=== PATIENT | male | born 1940 | race Caucasian/White ===

== ENCOUNTER 2018-09-20 05:21 | Inpatient (IN) | payer MEDICARE | END 2018-09-24 08:32 | disposition still patient (30) | LOC: ER 05:21 → TELE 10:22 → ICU WEST 21:38 | PROC: 4A023N8 Measurement of Cardiac Sampling and Pressure, Bilateral, Percutaneous Approach (ICD-10-PCS; principal; ~2018-09-20) | PROC: B2111ZZ Fluoroscopy of Multiple Coronary Arteries using Low Osmolar Contrast (ICD-10-PCS; ~2018-09-20) | PROC: B2161ZZ Fluoroscopy of Right and Left Heart using Low Osmolar Contrast (ICD-10-PCS; ~2018-09-20) | PROC: 5A02210 Assistance with Cardiac Output using Balloon Pump, Continuous (ICD-10-PCS; ~2018-09-20) | PROC: B2151ZZ Fluoroscopy of Left Heart using Low Osmolar Contrast (ICD-10-PCS; ~2018-09-20) | PROC: 4A023N7 Measurement of Cardiac Sampling and Pressure, Left Heart, Percutaneous Approach (ICD-10-PCS; ~2018-09-20) | PROC: 4A0 Measurement and Monitoring, Physiological Systems, Measurement (ICD-10-PCS; ~2018-09-20) | PROC: 02703ZZ Dilation of Coronary Artery, One Artery, Percutaneous Approach (ICD-10-PCS; ~2018-09-20) | DX: A41.9 Sepsis, unspecified organism (principal); I21.4 Non-ST elevation (NSTEMI) myocardial infarction; I50.43 Acute on chronic combined systolic (congestive) and diastolic (congestive) heart failure; I25.110 Atherosclerotic heart disease of native coronary artery with unstable angina pectoris; E11.42 Type 2 diabetes mellitus with diabetic polyneuropathy; I35.0 Nonrheumatic aortic (valve) stenosis; F12.10 Cannabis abuse, uncomplicated; I12.9 Hypertensive chronic kidney disease with stage 1 through stage 4 chronic kidney disease, or unspecified chronic kidney disease; E11.22 Type 2 diabetes mellitus with diabetic chronic kidney disease; N18.3 Chronic kidney disease, stage 3 (moderate); J44.9 Chronic obstructive pulmonary disease, unspecified; N36.5 Urethral false passage; N40.0 Benign prostatic hyperplasia without lower urinary tract symptoms ==

== ENCOUNTER 2019-02-28 17:26 | Inpatient (IN) | payer MEDICARE | END 2019-03-04 16:43 | disposition home or self-care (01) | LOC: ER 17:26 → TELE 17:27 → TELE-WESTW 03-01 08:59 | PROC: BF101ZZ Fluoroscopy of Bile Ducts using Low Osmolar Contrast (ICD-10-PCS; principal; 2019-03-03 16:20) | PROC: 0FC98ZZ Extirpation of Matter from Common Bile Duct, Via Natural or Artificial Opening Endoscopic (ICD-10-PCS; 2019-03-03 16:20) | DX: A41.9 Sepsis, unspecified organism (principal); I21.A1 Myocardial infarction type 2; K57.92 Diverticulitis of intestine, part unspecified, without perforation or abscess without bleeding; I42.0 Dilated cardiomyopathy; K81.0 Acute cholecystitis; I12.9 Hypertensive chronic kidney disease with stage 1 through stage 4 chronic kidney disease, or unspecified chronic kidney disease; E11.22 Type 2 diabetes mellitus with diabetic chronic kidney disease; E11.65 Type 2 diabetes mellitus with hyperglycemia; E78.5 Hyperlipidemia, unspecified; F12.90 Cannabis use, unspecified, uncomplicated; K72.90 Hepatic failure, unspecified without coma; N18.3 Chronic kidney disease, stage 3 (moderate); Z95.2 Presence of prosthetic heart valve; I35.0 Nonrheumatic aortic (valve) stenosis; I34.2 Nonrheumatic mitral (valve) stenosis; N30.90 Cystitis, unspecified without hematuria; K83.8 Other specified diseases of biliary tract; I25.10 Atherosclerotic heart disease of native coronary artery without angina pectoris; D64.9 Anemia, unspecified; K21.9 Gastro-esophageal reflux disease without esophagitis ==

== ENCOUNTER → 2019-04-04 | Outpatient (CLI) | payer MEDICARE, OTHER ==
[~2019-04-04] MED LIST: ACET30TA15 PO; ASPI81CH43 PO; GABA800T97 PO; GLIP10TA9 PO; PANT40T PO; pravastatin PO
== END | disposition home or self-care (01) ==
LOC: Rad HDHVI 10:52
PROVIDERS: ATTEND Internal Medicine Cardiovascular Disease
DX: I65.23 Occlusion and stenosis of bilateral carotid arteries (principal); M50.30 Other cervical disc degeneration, unspecified cervical region; M48.02 Spinal stenosis, cervical region
CPT/HCPCS: 72125; 93880

== ENCOUNTER 2020-03-30 13:22 | Inpatient (IN) | payer MEDICARE, OTHER ==
[~2020-03-30] VITALS: Ht 167.6 cm; Wt 57.9 kg
[2020-03-30] MEDS ORDERED: LORazepam 2MG/ML-1ML VIAL IV ONE (14:15)
[2020-03-30] MEDS ORDERED: SODIUM CHLORIDE 0.9% 1,000 ML IV ONE (14:15)
[2020-03-30 14:25] LABS: Basophils # (auto) 0 10 ^3/uL (0-0.2); Basophils % (auto) 0.5 % (0.0-2.0); Eosinophils # (auto) 0 10 ^3/uL (0-0.8); Eosinophils % (auto) 0.4 % (0.0-7.0); Hematocrit 40.7 % (41.0-53.0); Hemoglobin 13.2 g/dL (13.5-17.5); Lymphocytes # (auto) 1.2 10 ^3/uL (0.4-5.4); Lymphocytes % (auto) 12.5 % (10.0-50.0); Mean Corpuscular Hemoglobin 31.3 pg (28.0-32.0); Mean Corpuscular Hgb Conc. 32.4 g/dL (32.0-36.0); Mean Corpuscular Volume 96.4 fL (80.0-100.0); Monocytes # (auto) 0.4 10 ^3/uL (0-1.3); Monocytes % (auto) 3.8 % (0.0-12.0); Neutrophils # (auto) 8.2 10 ^3/uL (1.6-8.6); Neutrophils % (auto) 82.8 % (37.0-80.0); Platelet Count (auto) 199 10^3/uL (140-450); Red Blood Cells 4.22 10^6/uL (4.5-5.90); Red Cell Distribution Width 13.9 % (11.8-14.3); White Blood Cell 9.9 10^3/uL (4.4-10.8)
[2020-03-30 14:35] LABS: Albumin 4.2 g/dL (3.4-5.0); Calcium 9.6 mg/dL (8.5-10.1)
[2020-03-30 14:47] LABS: BUN/Creatinine Ratio 17.1; Bilirubin, Total 0.6 mg/dL (0.2-1.0); Total Protein 7.8 g/dL (6.4-8.2)
[2020-03-30] MEDS ORDERED: NITROGLYCERIN 0.4 MG SL TAB SL PRN ×2 (18:45→19:00)
[2020-03-30] MEDS ORDERED: LABETALOL HCL 5 MG/ML 4ML SYRINGE IV ONE (18:45)
[2020-03-30] MEDS ORDERED: MORPHINE SULF 30 mg ER tab PO ONE (18:45)
[2020-03-30] MEDS ORDERED: LACTATED RINGER'S 1,000 ML IV ONE (18:45)
[2020-03-30] MEDS ORDERED: MORPHINE SULF INJ 2 MG/ML SYRINGE 1ML IV PRN ×2 (18:45→19:00)
[2020-03-30] MEDS ORDERED: ONDANSETRON HCL 4 MG/2 ML VIAL IV PRN (19:00)
[2020-03-30] MEDS ORDERED: DEXTROSE (50%) 50ML SYRG IV PRN (19:00)
[2020-03-30] MEDS: SODIUM CHLORIDE 0.9% 1,000 ML IV SCH (19:00)
[2020-03-30] MEDS ORDERED: LORazepam 0.5 MG TAB PO PRN (19:00)
[2020-03-30] MEDS ORDERED: DOCUSATE SOD 100 MG CAP PO PRN (19:00)
[2020-03-30] MEDS ORDERED: ALUM & MAG HYDROX-SIMETH LIQ(MAALOX) 30 ML PO PRN (19:00)
[2020-03-30] MEDS ORDERED: cefTRIAXone 1GM/50ML D5W 50 ML IV ONE (19:00)
[2020-03-30] MEDS ORDERED: PANTOPRAZOLE 40 MG TAB PO ONE (19:00)
[2020-03-30] MEDS ORDERED: GABA400C11 PO (19:03)
[2020-03-30] MEDS ORDERED: AMIT PO (19:04)
[2020-03-30] MEDS ORDERED: hydrALAZINE HCL 25 MG TAB PO PRN (19:30)
[2020-03-30 20:08] LABS: Cholesterol 202 mg/dL (< 200); HDL Cholesterol 49 mg/dL (40-59); LDL Cholesterol 135 mg/dL (< 100); Triglycerides 122 mg/dL (< 150)
--- NOTE | 2020-03-30 20:19 | NUR ---
ASSUMED CARE of pt from ER SIDE RAILS UP, Bed lowest position, no complaints, [id number]
[2020-03-30 20:44] LABS: Urine Bacteria NONE SEEN /hpf (None Seen); Urine Blood Negative /uL (Negative); Urine Hyaline Cast FEW /lpf (0 - 2); Urine Specific Gravity 1.009 (1.001-1.035); Urine WBC <1 /hpf (0 - 3)
[2020-03-30 20:45] LABS: Alcohol, Urine < 3.0 mg/dL (0-10); Amphetamine Screen, Urine NEGATIVE (NEGATIVE); Barbiturate Scree,Urine NEGATIVE (NEGATIVE); Benzodiazephine Screen, Urine NEGATIVE (NEGATIVE); Cannabinoid Screen, Urine POSITIVE (NEGATIVE); Cocaine Screen, Urine NEGATIVE (NEGATIVE); Opiate Scree,Urine POSITIVE (NEGATIVE); Phencyclidine Screen, Urine NEGATIVE (NEGATIVE)
[2020-03-30] MEDS ORDERED: ATORVASTATIN 20 MG TAB PO SCH (22:00)
[2020-03-30] MEDS: ACCU-CHEK COMFORT CURVE STRIP VI SCH (22:00)
[2020-03-30] MEDS: GABAPENTIN 300 MG CAP PO SCH (22:28)
[2020-03-30] MEDS: InsuLIN REG 1unit/0.01ml Soln (100units/ml) SC SCH (22:38)
[2020-03-30] MEDS: MORPHINE SULF INJ 2 MG/ML SYRINGE 1ML IV PRN (22:42)
[2020-03-31] MEDS: ACETAMINOPHEN/CODEINE#3 (300/30mg) TAB PO SCH ×4 (00:23→18:27)
[2020-03-31] MEDS: MORPHINE SULF INJ 2 MG/ML SYRINGE 1ML IV PRN (00:23)
[2020-03-31 05:22] VITALS: BP 148/102
[2020-03-31] MEDS: ACCU-CHEK COMFORT CURVE STRIP VI SCH ×4 (06:08→22:00)
[2020-03-31] MEDS: InsuLIN REG 1unit/0.01ml Soln (100units/ml) SC SCH ×4 (06:08→22:00)
--- NOTE | 2020-03-31 07:15 | NUR ---
Opening Shift Note Assumed care of patient, awake and alert. No S/S of distress/SOB or pain. Instructed on POC and to call for assist PRN, will continue to monitor for changes Q1hr and PRN.
[2020-03-31 08:48] VITALS: BP 157/90
[2020-03-31] MEDS: cefTRIAXone 1GM/50ML D5W 50 ML IV SCH (09:17)
[2020-03-31] MEDS: METOPROLOL SUCCINATE XL 50 MG TAB PO SCH (09:18)
[2020-03-31] MEDS: ASPirin 81 mg TAB PO SCH (09:19)
[2020-03-31] MEDS: ENOXAPARIN SOD 40 MG/0.4 ML SYRINGE SC SCH (09:19)
[2020-03-31] MEDS: GABAPENTIN 300 MG CAP PO SCH (09:19)
[2020-03-31] MEDS ORDERED: PANTOPRAZOLE 40 MG TAB PO SCH (10:00)
--- NOTE | 2020-03-31 11:30 | NUR ---
WOUND CARE NOTE: IN TO SEE PATIENT AT THIS TIME PER WOUND CARE CONSULT REQUEST. PATIENT ADMITTED TO [facility] WITH DIAGNOSIS OF HYPERTENSIVE EMERGENCY, ACUTE WITHDRAWAL. CURRENT VALERY SCORE IS 18. PATIENT IS OBSERVED TO BE ABLE TO SELF TURN/REPOSITION SELF WITHOUT ASSISTANCE BY STAFF. PATIENT NOTED TO HAVE SKIN INTEGRITY ISSUE TO THE LEFT HIP AT ADMIT. WOUND PHOTO TAKEN AT THAT TIME FOR REFERENCE BY BEDSIDE NURSE FOR REFERENCE. PATIENT IS MOSTLY WHEELCHAIR BOUND AT HOME FOR SEVERAL YEARS. BONY PROMINENCES AREA PINK, BLANCHABLE. HE IS NOTED TO HAVE AN OLD COLLAGEN SCAR TO THE LEFT HIP FROM PREVIOUS HISTORY OF PRESSURE INJURY TO THE AREA. THERE IS SMALL LINEAR FADING PURPLE AREA MEASURING 0.3 X 1.5 CM OVER SCAR. PERIWOUND AREA IS PINK. THIS APPEARS A FADING ECCHYMOSIS, DOESN'T APPEAR PRESSURE RELATED. NO OTHER SKIN INTEGRITY ISSUES SEEN AT THIS TIME. RECOMMEND: FREQUENT TURN SCHEDULE Q 2 HOURS, PRN CONDITION PERMITS, WITH PRESSURE REDISTRIBUTION USING PILLOWS/WEDGES, BID/PRN APPLICATION WITH MOISTURE BARRIER CREAM, OPTIFOAM GENTLE DRESSING PREVENTATIVE, SKIN/WOUND CARE PLAN. NO FURTHER WOUND CARE MONITORING NEEDED AT THIS TIME. Addendum: 03/31/20 at 1728 by Catrina Patel RN Amended: Links added.
[2020-03-31 11:57] VITALS: BP 146/90
[2020-03-31] MEDS: SODIUM CHLORIDE 0.9% 1,000 ML IV SCH (12:51)
[2020-03-31] MEDS ORDERED: ACETAMINOPHEN/CODEINE#3 (300/30mg) TAB PO PRN (16:15)
--- NOTE | 2020-03-31 16:40 | NUR ---
THIS RN CHECKED PT. BLOOD GLUCOSE 66; GAVE PT. CRANBERRY JUICE AND RECHECKED BLOOD GLUCOSE WHICH WENT UP TO 111.
[2020-03-31 17:09] VITALS: BP 141/75
--- NOTE | 2020-03-31 18:53 | NUR ---
End of shift Pt. resting comfortably; no signs or symptoms of distress. Care endorsed.
[2020-03-31 20:00] VITALS: BP 157/90
[2020-03-31 22:00] VITALS: BP 149/91
[2020-03-31] MEDS ORDERED: PRAVASTATIN SODIUM 20 MG TAB PO SCH (22:00)
[2020-03-31] MEDS: glipiZIDE 5 MG TAB PO SCH (23:00)
[2020-03-31] MEDS: GABAPENTIN 400 MG CAP PO SCH (23:01)
[2020-04-01] MEDS: SODIUM CHLORIDE 0.9% 1,000 ML IV SCH (04:20)
[2020-04-01 05:00] VITALS: BP 150/78
[2020-04-01] MEDS: InsuLIN REG 1unit/0.01ml Soln (100units/ml) SC SCH ×3 (05:42→17:00)
[2020-04-01] MEDS: ACCU-CHEK COMFORT CURVE STRIP VI SCH ×3 (05:43→17:00)
[2020-04-01] MEDS: GABAPENTIN 400 MG CAP PO SCH ×2 (05:47→15:15)
[2020-04-01] MEDS: ACETAMINOPHEN/CODEINE#3 (300/30mg) TAB PO SCH ×4 (05:47→18:00)
[2020-04-01 07:29] LABS: Basophils # (auto) 0 10 ^3/uL (0-0.2); Basophils % (auto) 0.3 % (0.0-2.0); Eosinophils # (auto) 0.1 10 ^3/uL (0-0.8); Hematocrit 37.8 % (41.0-53.0); Hemoglobin 12.4 g/dL (13.5-17.5); Lymphocytes # (auto) 2.1 10 ^3/uL (0.4-5.4); Lymphocytes % (auto) 16.4 % (10.0-50.0); Mean Corpuscular Hemoglobin 31.3 pg (28.0-32.0); Mean Corpuscular Hgb Conc. 32.8 g/dL (32.0-36.0); Mean Corpuscular Volume 95.5 fL (80.0-100.0); Monocytes # (auto) 0.9 10 ^3/uL (0-1.3); Monocytes % (auto) 7.2 % (0.0-12.0); Neutrophils # (auto) 9.8 10 ^3/uL (1.6-8.6); Neutrophils % (auto) 75.1 % (37.0-80.0); Platelet Count (auto) 189 10^3/uL (140-450); Red Blood Cells 3.96 10^6/uL (4.5-5.90); Red Cell Distribution Width 14.1 % (11.8-14.3)
[2020-04-01 07:39] LABS: Calcium 9.2 mg/dL (8.5-10.1); Potassium 4.2 mmol/L (3.5-5.1)
[2020-04-01 07:45] LABS: BUN/Creatinine Ratio 19.5
[2020-04-01 08:56] VITALS: BP 137/95
[2020-04-01] MEDS: ENOXAPARIN SOD 40 MG/0.4 ML SYRINGE SC SCH (09:08)
[2020-04-01] MEDS: cefTRIAXone 1GM/50ML D5W 50 ML IV SCH (09:08)
[2020-04-01] MEDS: ASPirin 81 mg TAB PO SCH (09:09)
[2020-04-01] MEDS: glipiZIDE 5 MG TAB PO SCH (09:16)
[2020-04-01] MEDS: METOPROLOL SUCCINATE XL 50 MG TAB PO SCH (09:18)
[2020-04-01] MEDS ORDERED: PANTOPRAZOLE 40 MG TAB PO SCH (10:00)
[2020-04-01 13:04] VITALS: BP 131/88
[2020-04-01 16:49] VITALS: BP 154/88
[2020-04-01 17:00] VITALS: BP 154/89
--- NOTE | 2020-04-01 18:10 | NUR ---
Discharge instructions given as ordered. Encourage to follow up with Primary Care Doctor as instructed. All questions and concerns addressed. Patient verbalized understanding. Medication reconciliation form completed and copy given to patient. IV removed with catheter intact, pressure dressing applied. Telemetry unit returned to ICU. Patient taken to vehicle via wheelchair with all personal belongings, accompanied by staff. No distress noted at time of departure.
--- NOTE | 2020-04-02 11:25 | NUR ---
phone representative 03/31/20 Per consult home health safety. No call or page on this patient. I called patient and he is refusing home health. Per patient he does not want anyone in his home due to Covid. Addendum: 04/04/20 at 1126 by Michelle Murdock Amended: Links added.
== END 2020-04-01 18:10 | disposition home or self-care (01) | DRG 896 ==
LOC: ER 13:22 → TELE 13:23 → TELE-WESTW 20:55
PROVIDERS: ADMIT Hospitalist; ATTEND Hospitalist
DX: F11.23 Opioid dependence with withdrawal (principal); N17.0 Acute kidney failure with tubular necrosis; R53.2 Functional quadriplegia; N39.0 Urinary tract infection, site not specified; R07.89 Other chest pain; D63.1 Anemia in chronic kidney disease; E11.22 Type 2 diabetes mellitus with diabetic chronic kidney disease; E11.40 Type 2 diabetes mellitus with diabetic neuropathy, unspecified; E78.5 Hyperlipidemia, unspecified; G89.4 Chronic pain syndrome; I13.10 Hypertensive heart and chronic kidney disease without heart failure, with stage 1 through stage 4 chronic kidney disease, or unspecified chronic kidney disease; I25.10 Atherosclerotic heart disease of native coronary artery without angina pectoris; K80.70 Calculus of gallbladder and bile duct without cholecystitis without obstruction; N18.9 Chronic kidney disease, unspecified; F17.200 Nicotine dependence, unspecified, uncomplicated; Z79.82 Long term (current) use of aspirin; Z79.84 Long term (current) use of oral hypoglycemic drugs; Z79.899 Other long term (current) drug therapy; Z86.73 Personal history of transient ischemic attack (TIA), and cerebral infarction without residual deficits; Z95.2 Presence of prosthetic heart valve; Z98.61 Coronary angioplasty status; Z90.49 Acquired absence of other specified parts of digestive tract; Z95.818 Presence of other cardiac implants and grafts; Z95.4 Presence of other heart-valve replacement; Z98.49 Cataract extraction status, unspecified eye; Z82.3 Family history of stroke; Z82.49 Family history of ischemic heart disease and other diseases of the circulatory system
CPT/HCPCS: 36415; 71045; 80048; 80053; 80061; 80307; 81001; 82962; 83036; 83880; 84443; 84484; 85025; 87040; 87086; 93005; 93306; 96361; 96374; G0378; J0696; J1815

== ENCOUNTER 2020-10-05 11:18 | Inpatient (IN) | payer OTHER, MEDICARE ==
[~2020-10-05] VITALS: Ht 170.2 cm; Wt 55.0 kg
[2020-10-05] VITALS (21 sets, daily range): BP systolic 82–166; BP diastolic 43–60
[~2020-10-05 11:18] MED LIST changes: +AMIT10TA8 PO; +GABA400C11 PO; -GABA800T97 PO
[2020-10-05] MEDS ORDERED: ETOMIDATE (2MG/ML) 20ML VIAL IV ONE ×2 (12:23→12:28)
[2020-10-05] MEDS ORDERED: MIDAZOLAM DRIP 50 mg/50mL 50 ML IV ONE (12:24)
[2020-10-05] MEDS ORDERED: SUCCINYLCHOLINE CHLORIDE 20 MG/ML 10ML VIAL IV ONE ×2 (12:24→12:28)
[2020-10-05] MEDS: MIDAZOLAM DRIP 50 mg/50mL 50 ML IV SCH ×3 (12:30→22:39)
[2020-10-05] MEDS ORDERED: NOREPINEPHRINE 8 MG/250ML KIT 250 ML IV ONE (12:35)
[2020-10-05] MEDS ORDERED: cefTRIAXone 1GM/50ML D5W 50 ML IV ONE (12:45)
[2020-10-05] MEDS ORDERED: CLINDAMYCIN 600MG IV 50 ML IV ONE (12:45)
[2020-10-05 12:51] LABS: Urine Bacteria FEW /hpf (None Seen); Urine Blood 3+ /uL (Negative); Urine Specific Gravity 1.018 (1.001-1.035); Urine WBC 6 /hpf (0 - 3)
[2020-10-05 12:58] LABS: Hemoglobin 11.4 g/dL (13.5-17.5)
[2020-10-05 12:59] LABS: Hematocrit 37.5 % (41.0-53.0); Mean Corpuscular Hemoglobin 31.3 pg (28.0-32.0); Mean Corpuscular Hgb Conc. 30.5 g/dL (32.0-36.0); Mean Corpuscular Volume 102.7 fL (80.0-100.0); Red Blood Cells 3.65 10^6/uL (4.5-5.90); Red Cell Distribution Width 16.3 % (11.8-14.3); White Blood Cell 25.4 10^3/uL (4.4-10.8)
[2020-10-05 13:07] LABS: Basophils % (manual) 0 (0.0-2.0); Blast Cells 0; Eosinophils % (manual) 0 (0-7); Lymphocytes % (manual) 0 (10.0-50.0); Reactive Lymphocytes 0
[2020-10-05 13:11] LABS: INR 1.05 (0.9-1.15); Partial Thromboplastin Time 29.9 sec (23.0-31.2)
[2020-10-05 13:13] LABS: Albumin 2.6 g/dL (3.4-5.0); Calcium 7.4 mg/dL (8.5-10.1); Magnesium 3.8 mg/dL (1.6-2.6)
[2020-10-05 13:16] LABS: Lactic Acid w/Reflex 3.3 mmol/L (0.4-2.0)
[2020-10-05 13:21] LABS: BUN/Creatinine Ratio 20.5; Bilirubin, Total 0.7 mg/dL (0.2-1.0); Total Protein 6.8 g/dL (6.4-8.2)
[2020-10-05 13:30] LABS: Potassium 6.5 mmol/L (3.5-5.1)
[2020-10-05] MEDS ORDERED: SODIUM BICARBONATE 8.4 % INJ 50ML VIAL IV ONE (13:30)
[2020-10-05] MEDS ORDERED: DEXTROSE (50%) 50ML SYRG IV ONE (13:45)
[2020-10-05] MEDS ORDERED: DEXTROSE (50%) 50ML SYRG IV PRN ×3 (13:45→15:00)
[2020-10-05] MEDS ORDERED: FUROSEMIDE 20 MG/2 ML VIAL IV ONE (13:45)
[2020-10-05] MEDS ORDERED: SODIUM ZIRCONIUM CYCL 10 GM PAK PO ONE ×2 (13:45→23:45)
[2020-10-05] MEDS ORDERED: SODIUM BICARBONATE 8.4% INJ 50ML SYRINGE IV ONE (13:45)
[2020-10-05] MEDS ORDERED: CALCIUM GLUC 1,000mg/50ml-NS 50 ML IV ONE ×2 (13:45→23:56)
[2020-10-05] MEDS ORDERED: SODIUM BICARB 50ML SYR 150 ML in SODIUM CHLORIDE 0.9% 1,000 ML IV ONE (13:45)
[2020-10-05] MEDS ORDERED: InsuLIN R (HUMAN) 100 UNITS in SODIUM CHL 0.9% 99 ML IV SCH ×2 (13:45→15:00)
[2020-10-05] MEDS ORDERED: InsuLIN REG 1unit/0.01ml Soln (100units/ml) IV ONE ×2 (13:45)
[2020-10-05] MEDS ORDERED: ALBUTEROL SULF 2.5 MG/0.5ML(0.5%) NEB SOLN NEB ONE (13:45)
[2020-10-05 14:11] LABS: Band Neutrophils % (manual) 27; Metamyelocytes % 8; Monocytes % (manual) 3 (0-12); Myelocytes % 2; Promyelocytes % 1
[2020-10-05] MEDS ORDERED: MORPHINE SULFATE INJECTION 2 MG/ML SYRG IV PRN ×2 (14:15→15:30)
[2020-10-05] MEDS: NOREPINEPHRINE 8 MG/250ML KIT 250 ML IV SCH (14:15)
[2020-10-05] MEDS ORDERED: NITROGLYCERIN 0.4 MG SL TAB SL PRN ×2 (14:15→15:30)
[2020-10-05] MEDS ORDERED: ACCU-CHEK COMFORT CURVE STRIP VI SCH ×2 (15:00→18:00)
[2020-10-05] MEDS ORDERED: INSULIN LANTUS (GLARGINE) 1 /0.01ml (100units/ml) SC ONE (15:00)
[2020-10-05] MEDS: SODIUM CHLORIDE 0.9% 1,000 ML IV SCH ×4 (15:09→21:00)
[2020-10-05] MEDS ORDERED: LORazepam 2MG/ML-1ML VIAL IV PRN (15:15)
[2020-10-05] MEDS ORDERED: LACTATED RINGER'S 2,000 ML IV ONE (15:15)
[2020-10-05] MEDS ORDERED: ENOXAPARIN SOD 60 MG/0.6 ML SYRINGE SC ONE (15:15)
[2020-10-05] MEDS: ACCU-CHEK COMFORT CURVE STRIP VI SCH ×6 (15:17→22:38)
[2020-10-05] MEDS ORDERED: ONDANSETRON HCL 4 MG/2 ML VIAL IV PRN (15:30)
[2020-10-05] MEDS ORDERED: HYDROcodone-ACET 5/325MG TAB PO PRN (15:30)
[2020-10-05] MEDS ORDERED: VANCOMYCIN 1GM/250ML 250 ML IV ONE (15:30)
[2020-10-05] MEDS ORDERED: LORazepam 0.5 MG TAB PO PRN (15:30)
[2020-10-05] MEDS ORDERED: VANCOMYCIN PER PHARMACY 0 MG IV SCH (15:30)
[2020-10-05] MEDS ORDERED: DOCUSATE SOD 100 MG CAP PO PRN (15:30)
[2020-10-05] MEDS: LINEZOLID 600MG/300ML 300 ML IV SCH (17:37)
[2020-10-05] MEDS ORDERED: InsuLIN REG 1unit/0.01ml Soln (100units/ml) SC SCH (18:00)
[2020-10-05] MEDS: D5W/SOD CHLO 0.9% 1,000 ML IV SCH ×2 (18:37→21:55)
[2020-10-05] MEDS ORDERED: SODIUM CHLORIDE 0.9% 1,000 ML IV SCH (19:00)
[2020-10-05] MEDS: FAMOTIDINE (10MG/ML) 2ML VL IV SCH (21:55)
[2020-10-05] MEDS: PIPERACILLIN-TAZOB 2.25GM 50 ML IV SCH (21:56)
[2020-10-05] MEDS ORDERED: VANCOMYCIN 1GM/250ML 250 ML IV SCH (22:00)
[2020-10-05 22:14] LABS: Lactic Acid w/Reflex 2.6 mmol/L (0.4-2.0)
[2020-10-05 22:53] LABS: INR 1.17 (0.9-1.15); Partial Thromboplastin Time 42.2 sec (23.0-31.2)
[2020-10-05 23:23] LABS: Potassium 4.5 mmol/L (3.5-5.1)
[2020-10-05 23:27] LABS: BUN/Creatinine Ratio 23.1
[2020-10-05 23:32] LABS: Calcium 5.6 mg/dL (8.5-10.1)
[2020-10-06] VITALS (97 sets, daily range): BP systolic 82–129; BP diastolic 39–64
[2020-10-06] MEDS: ACCU-CHEK COMFORT CURVE STRIP VI SCH ×10 (00:08→17:41)
[2020-10-06] MEDS: D5W/SOD CHLO 0.9% 1,000 ML IV SCH ×2 (01:37→09:04)
[2020-10-06] MEDS: SODIUM CHLORIDE 0.9% 1,000 ML IV SCH ×5 (02:00→21:34)
[2020-10-06] MEDS: MIDAZOLAM DRIP 50 mg/50mL 50 ML IV SCH ×5 (03:38→21:34)
[2020-10-06 04:38] LABS: Hematocrit 25.2 % (41.0-53.0); Hemoglobin 8.5 g/dL (13.5-17.5); Mean Corpuscular Hemoglobin 31.5 pg (28.0-32.0); Mean Corpuscular Hgb Conc. 33.5 g/dL (32.0-36.0); Red Blood Cells 2.69 10^6/uL (4.5-5.90); Red Cell Distribution Width 14.4 % (11.8-14.3); White Blood Cell 17.6 10^3/uL (4.4-10.8)
[2020-10-06 04:49] LABS: Basophils % (manual) 0 (0.0-2.0); Blast Cells 0; Eosinophils % (manual) 0 (0-7); Promyelocytes % 0; Reactive Lymphocytes 0
[2020-10-06 04:53] LABS: Albumin 1.7 g/dL (3.4-5.0); Potassium 3.9 mmol/L (3.5-5.1); Uric Acid 11.6 mg/dL (3.5-7.2)
[2020-10-06 04:57] LABS: Bilirubin, Total 0.3 mg/dL (0.2-1.0); Phosphorus 4.8 mg/dL (2.5-4.90); Total Protein 4.3 g/dL (6.4-8.2)
[2020-10-06 04:58] LABS: INR 1.13 (0.9-1.15); Partial Thromboplastin Time 42.9 sec (23.0-31.2)
[2020-10-06] MEDS: LINEZOLID 600MG/300ML 300 ML IV SCH ×2 (05:00→17:24)
[2020-10-06 05:01] LABS: Potassium 3.9 mmol/L (3.5-5.1)
[2020-10-06 05:22] LABS: Calcium 5.5 mg/dL (8.5-10.1)
[2020-10-06 05:45] LABS: Band Neutrophils % (manual) 34; Lymphocytes % (manual) 3 (10.0-50.0); Metamyelocytes % 6; Monocytes % (manual) 4 (0-12); Myelocytes % 2
[2020-10-06] MEDS: PIPERACILLIN-TAZOB 2.25GM 50 ML IV SCH ×3 (05:59→21:34)
[2020-10-06] MEDS ORDERED: CALCIUM GLUC 1,000mg/50ml-NS 50 ML IV ONE ×4 (08:00→20:45)
[2020-10-06] MEDS: INSULIN LANTUS (GLARGINE) 1 /0.01ml (100units/ml) SC SCH (09:48)
[2020-10-06 10:25] LABS: BUN/Creatinine Ratio 23.7
[2020-10-06 10:29] LABS: Calcium 5.6 mg/dL (8.5-10.1)
[2020-10-06] MEDS ORDERED: HEPARIN SODIUM (PORCINE) 5000 UNITS/ML 1ML VIAL IV ONE (11:45)
[2020-10-06] MEDS ORDERED: HEPARIN DRIP/D5W 100UNITS/ML 250 ML IV SCH (12:00)
[2020-10-06] MEDS: NOREPINEPHRINE 8 MG/250ML KIT 250 ML IV SCH ×2 (12:45→17:24)
[2020-10-06] MEDS ORDERED: FUROSEMIDE 20 MG/2 ML VIAL IV ONE (13:15)
[2020-10-06 14:26] LABS: BUN/Creatinine Ratio 24.4; Potassium 3.9 mmol/L (3.5-5.1)
[2020-10-06 16:14] LABS: Urine Amorphous Crystal FEW /hpf (None Seen); Urine Bacteria NONE SEEN /hpf (None Seen); Urine Blood 2+ /uL (Negative); Urine Mucus FEW (None Seen); Urine Specific Gravity 1.008 (1.001-1.035); Urine WBC 5 /hpf (0 - 3)
[2020-10-06 16:29] LABS: Protein, Urine 37.4 mg/dL (0.0-11.9)
[2020-10-06] MEDS: InsuLIN REG 1unit/0.01ml Soln (100units/ml) SC SCH (17:55)
[2020-10-06] MEDS: CALCIUM W/VIT D (600MG/400IU) TAB PO SCH (17:56)
[2020-10-06 18:18] LABS: BUN/Creatinine Ratio 24.4
[2020-10-06 19:05] LABS: Calcium 5.8 mg/dL (8.5-10.1)
[2020-10-06] MEDS ORDERED: VANCOMYCIN PER PHARMACY 0 MG IV SCH (20:45)
[2020-10-06 20:51] LABS: INR 1.2 (0.9-1.15); Partial Thromboplastin Time 31.7 sec (23.0-31.2)
[2020-10-07] VITALS (105 sets, daily range): BP systolic 60–151; BP diastolic 35–76
[2020-10-07] MEDS: ACCU-CHEK COMFORT CURVE STRIP VI SCH ×4 (00:18→17:33)
[2020-10-07] MEDS: SODIUM CHLORIDE 0.9% 1,000 ML IV SCH ×4 (00:19→20:00)
[2020-10-07 02:09] LABS: INR 1.24 (0.9-1.15)
[2020-10-07] MEDS ORDERED: HEPARIN SODIUM (PORCINE) 5000 UNITS/ML 1ML VIAL ONE (02:51)
[2020-10-07] MEDS: MIDAZOLAM DRIP 50 mg/50mL 50 ML IV SCH ×4 (03:07→20:06)
[2020-10-07] MEDS ORDERED: FLEET ENEMA(ADULT) 135 ML PR ONE (04:00)
[2020-10-07] MEDS: LINEZOLID 600MG/300ML 300 ML IV SCH ×2 (04:27→17:23)
[2020-10-07 04:54] LABS: Red Blood Cells 2.79 10^6/uL (4.5-5.90)
[2020-10-07 04:57] LABS: Hematocrit 26.1 % (41.0-53.0); Hemoglobin 8.7 g/dL (13.5-17.5); Mean Corpuscular Hemoglobin 31.2 pg (28.0-32.0); Mean Corpuscular Hgb Conc. 33.2 g/dL (32.0-36.0); Mean Corpuscular Volume 93.7 fL (80.0-100.0); Red Cell Distribution Width 14.9 % (11.8-14.3)
[2020-10-07 05:08] LABS: White Blood Cell 30.7 10^3/uL (4.4-10.8)
[2020-10-07 05:09] LABS: Magnesium 1.6 mg/dL (1.6-2.6); Potassium 3.9 mmol/L (3.5-5.1)
[2020-10-07 05:10] LABS: Basophils % (manual) 0 (0.0-2.0); Blast Cells 0; Eosinophils % (manual) 0 (0-7); Lymphocytes % (manual) 0 (10.0-50.0); Monocytes % (manual) 0 (0-12); Promyelocytes % 0; Reactive Lymphocytes 0
[2020-10-07 05:28] LABS: Albumin 1.4 g/dL (3.4-5.0); BUN/Creatinine Ratio 23.2; Bilirubin, Direct 0.2 mg/dL (0-0.2); Bilirubin, Total 0.3 mg/dL (0.2-1.0); Phosphorus 3.7 mg/dL (2.5-4.90); Total Protein 4.3 g/dL (6.4-8.2)
[2020-10-07 05:45] LABS: Calcium 5.9 mg/dL (8.5-10.1)
[2020-10-07] MEDS: InsuLIN REG 1unit/0.01ml Soln (100units/ml) SC SCH ×4 (06:00→17:34)
[2020-10-07 06:19] LABS: Band Neutrophils % (manual) 40; Metamyelocytes % 6; Myelocytes % 2
[2020-10-07] MEDS: PIPERACILLIN-TAZOB 2.25GM 50 ML IV SCH ×3 (06:31→21:44)
[2020-10-07] MEDS ORDERED: CALCIUM GLUC 1,000mg/50ml-NS 50 ML IV ONE (08:00)
[2020-10-07] MEDS ORDERED: FUROSEMIDE 40 MG/4 ML VIAL IV ONE (10:00)
[2020-10-07] MEDS: INSULIN LANTUS (GLARGINE) 1 /0.01ml (100units/ml) SC SCH (10:00)
[2020-10-07 10:12] LABS: INR 1.34 (0.9-1.15)
[2020-10-07] MEDS: CALCIUM W/VIT D (600MG/400IU) TAB PO SCH ×2 (11:18→18:07)
[2020-10-07] MEDS: FAMOTIDINE (10MG/ML) 2ML VL IV SCH (11:19)
[2020-10-07] MEDS ORDERED: ADENOSINE 6 MG/2 ML INJ IV ONE (13:16)
[2020-10-07] MEDS ORDERED: VANCOMYCIN 1GM/250ML 250 ML IV ONE (16:00)
[2020-10-07 18:33] LABS: BUN/Creatinine Ratio 24.6; Potassium 3.3 mmol/L (3.5-5.1)
[2020-10-07 18:39] LABS: Calcium 5.7 mg/dL (8.5-10.1); INR 1.22 (0.9-1.15)
[2020-10-07 18:44] LABS: Partial Thromboplastin Time 85.3 sec (23.0-31.2)
[2020-10-07] MEDS ORDERED: POTASSIUM CHL 20MEQ/100ML 100 ML IV SCH (19:00)
[2020-10-07] MEDS: POTASSIUM CHL 20MEQ/100ML 100 ML IV SCH ×2 (20:06→21:44)
[2020-10-08] VITALS (107 sets, daily range): BP systolic 59–171; BP diastolic 36–76
[2020-10-08] MEDS: MIDAZOLAM DRIP 50 mg/50mL 50 ML IV SCH ×2 (00:30→05:30)
[2020-10-08] MEDS: InsuLIN REG 1unit/0.01ml Soln (100units/ml) SC SCH ×4 (00:30→18:00)
[2020-10-08] MEDS: DEXTROSE (50%) 50ML SYRG IV PRN ×2 (00:38→12:05)
[2020-10-08 01:18] LABS: INR 1.21 (0.9-1.15); Partial Thromboplastin Time 48.2 sec (23.0-31.2)
[2020-10-08 04:28] LABS: Hematocrit 23.5 % (41.0-53.0); Hemoglobin 7.8 g/dL (13.5-17.5); Red Cell Distribution Width 15.2 % (11.8-14.3)
[2020-10-08 04:30] LABS: Mean Corpuscular Hemoglobin 30.8 pg (28.0-32.0); Mean Corpuscular Volume 93.4 fL (80.0-100.0); Red Blood Cells 2.52 10^6/uL (4.5-5.90)
[2020-10-08 04:36] LABS: INR 1.19 (0.9-1.15); Partial Thromboplastin Time 50.3 sec (23.0-31.2)
[2020-10-08 04:44] LABS: Potassium 3.9 mmol/L (3.5-5.1)
[2020-10-08 04:49] LABS: Albumin 1.2 g/dL (3.4-5.0); BUN/Creatinine Ratio 24.7; Bilirubin, Total 0.3 mg/dL (0.2-1.0); Magnesium 1.6 mg/dL (1.6-2.6); Phosphorus 3.2 mg/dL (2.5-4.90); Total Protein 4.3 g/dL (6.4-8.2)
[2020-10-08] MEDS: LINEZOLID 600MG/300ML 300 ML IV SCH (04:55)
[2020-10-08 05:03] LABS: Calcium 5.6 mg/dL (8.5-10.1); White Blood Cell 35.6 10^3/uL (4.4-10.8)
[2020-10-08 05:05] LABS: Basophils % (manual) 0 (0.0-2.0); Blast Cells 0; Eosinophils % (manual) 0 (0-7); Promyelocytes % 0; Reactive Lymphocytes 0
[2020-10-08 05:36] LABS: Lymphocytes % (manual) 1 (10.0-50.0); Monocytes % (manual) 1 (0-12)
[2020-10-08 05:38] LABS: Band Neutrophils % (manual) 26; Metamyelocytes % 4
[2020-10-08 05:40] LABS: Myelocytes % 1
[2020-10-08] MEDS: SODIUM CHLORIDE 0.9% 1,000 ML IV SCH (05:49)
[2020-10-08] MEDS: PIPERACILLIN-TAZOB 2.25GM 50 ML IV SCH (05:49)
[2020-10-08] MEDS: ACCU-CHEK COMFORT CURVE STRIP VI SCH ×4 (05:50→18:32)
[2020-10-08] MEDS: CALCIUM W/VIT D (600MG/400IU) TAB PO SCH (08:15)
[2020-10-08] MEDS: INSULIN LANTUS (GLARGINE) 1 /0.01ml (100units/ml) SC SCH (10:00)
[2020-10-08] MEDS ORDERED: FUROSEMIDE 40 MG/4 ML VIAL IV SCH (10:15)
[2020-10-08] MEDS: fentaNYL Drip 2500mCg/250mlNS 250 ML IV SCH ×2 (10:15→12:05)
[2020-10-08] MEDS ORDERED: VANCOMYCIN 500 MG in D5W 5% 100 ML IV ONE (10:45)
[2020-10-08] MEDS ORDERED: PANTOPRAZOLE 40 MG/10 ML VIAL INJ IV ONE (11:30)
[2020-10-08] MEDS ORDERED: SODIUM CHLORIDE 0.9% 1,000 ML IV SCH (11:30)
[2020-10-08] MEDS ORDERED: Glucerna 1.2 Cal 1Liter BOTTLE GT SCH (11:30)
[2020-10-08] MEDS ORDERED: CALCIUM GLUC 1,000mg/50ml-NS 50 ML IV ONE (11:30)
[2020-10-08] MEDS: NOREPINEPHRINE 8 MG/250ML KIT 250 ML IV SCH (12:42)
[2020-10-08] MEDS: MEROPENEM 500MG IVPB 50 ML IV SCH ×2 (14:15→21:00)
[2020-10-08] MEDS: ALBUMIN 25% 50 ML IV SCH ×2 (14:30→20:21)
[2020-10-09] VITALS (102 sets, daily range): BP systolic 93–129; BP diastolic 49–66
[2020-10-09 04:16] LABS: Hemoglobin 7.3 g/dL (13.5-17.5)
[2020-10-09 04:19] LABS: Hematocrit 21.8 % (41.0-53.0); Mean Corpuscular Hemoglobin 31.2 pg (28.0-32.0); Mean Corpuscular Hgb Conc. 33.4 g/dL (32.0-36.0); Mean Corpuscular Volume 93.3 fL (80.0-100.0); Red Blood Cells 2.34 10^6/uL (4.5-5.90); Red Cell Distribution Width 15.2 % (11.8-14.3)
[2020-10-09 04:35] LABS: Potassium 3.4 mmol/L (3.5-5.1)
[2020-10-09 04:43] LABS: Albumin 1.7 g/dL (3.4-5.0); BUN/Creatinine Ratio 24.8; Bilirubin, Total 0.6 mg/dL (0.2-1.0); Calcium 6.3 mg/dL (8.5-10.1); Magnesium 1.7 mg/dL (1.6-2.6); Total Protein 4.4 g/dL (6.4-8.2)
[2020-10-09 05:01] LABS: White Blood Cell 31.2 10^3/uL (4.4-10.8)
[2020-10-09 05:02] LABS: Basophils % (manual) 0 (0.0-2.0); Blast Cells 0; Eosinophils % (manual) 0 (0-7); Myelocytes % 0; Promyelocytes % 0; Reactive Lymphocytes 0
[2020-10-09 05:24] LABS: Band Neutrophils % (manual) 12; Lymphocytes % (manual) 2 (10.0-50.0); Monocytes % (manual) 2 (0-12)
[2020-10-09 05:25] LABS: Metamyelocytes % 2
[2020-10-09] MEDS: InsuLIN REG 1unit/0.01ml Soln (100units/ml) SC SCH ×5 (05:25→23:49)
[2020-10-09] MEDS: ACCU-CHEK COMFORT CURVE STRIP VI SCH ×5 (05:25→23:39)
[2020-10-09 08:06] LABS: Immunoglobulin G, Serum 404 mg/dL (603-1613)
[2020-10-09] MEDS: PANTOPRAZOLE 40 MG/10 ML VIAL INJ IV SCH (10:04)
[2020-10-09] MEDS: MEROPENEM 500MG IVPB 50 ML IV SCH ×2 (10:04→21:53)
[2020-10-09] MEDS: POTASSIUM CHL 20MEQ/100ML 100 ML IV SCH ×3 (11:36→15:30)
[2020-10-09] MEDS: NOREPINEPHRINE 8 MG/250ML KIT 250 ML IV SCH (12:45)
[2020-10-09] MEDS ORDERED: VANCOMYCIN 500 MG in D5W 5% 100 ML IV ONE (13:00)
[2020-10-10] VITALS (101 sets, daily range): BP systolic 100–134; BP diastolic 53–76
[2020-10-10 04:56] LABS: Hematocrit 23.7 % (41.0-53.0); Hemoglobin 7.9 g/dL (13.5-17.5); Mean Corpuscular Hgb Conc. 33.5 g/dL (32.0-36.0); Mean Corpuscular Volume 92.4 fL (80.0-100.0); Red Blood Cells 2.57 10^6/uL (4.5-5.90); Red Cell Distribution Width 15.2 % (11.8-14.3); White Blood Cell 28.3 10^3/uL (4.4-10.8)
[2020-10-10 05:09] LABS: Calcium 7.2 mg/dL (8.5-10.1); Potassium 4.2 mmol/L (3.5-5.1)
[2020-10-10 05:16] LABS: Basophils % (manual) 0 (0.0-2.0); Blast Cells 0; Eosinophils % (manual) 0 (0-7); Metamyelocytes % 0; Myelocytes % 0; Promyelocytes % 0; Reactive Lymphocytes 0
[2020-10-10] MEDS: ACCU-CHEK COMFORT CURVE STRIP VI SCH ×3 (05:37→17:52)
[2020-10-10] MEDS: InsuLIN REG 1unit/0.01ml Soln (100units/ml) SC SCH ×3 (05:45→17:53)
[2020-10-10 06:14] LABS: Band Neutrophils % (manual) 6; Lymphocytes % (manual) 2 (10.0-50.0); Monocytes % (manual) 2 (0-12)
[2020-10-10] MEDS: fentaNYL Drip 2500mCg/250mlNS 250 ML IV SCH (10:15)
[2020-10-10] MEDS: MEROPENEM 500MG IVPB 50 ML IV SCH ×2 (10:23→22:00)
[2020-10-10] MEDS: PANTOPRAZOLE 40 MG/10 ML VIAL INJ IV SCH (10:23)
[2020-10-10] MEDS: NOREPINEPHRINE 8 MG/250ML KIT 250 ML IV SCH (12:45)
[2020-10-10] MEDS ORDERED: levoFLOXacin 750MG 150 ML IV ONE (16:00)
[2020-10-11] VITALS (80 sets, daily range): BP systolic 107–149; BP diastolic 54–73
[2020-10-11] MEDS: fentaNYL Drip 2500mCg/250mlNS 250 ML IV SCH (01:48)
[2020-10-11] MEDS: ACETAMINOPHEN 325 MG TAB PO PRN (02:10)
[2020-10-11] MEDS ORDERED: dilTIAZem 25 MG/5 ML VIAL IV ONE (02:30)
[2020-10-11 04:30] LABS: Basophils # (auto) 0 10 ^3/uL (0-0.2); Eosinophils # (auto) 0 10 ^3/uL (0-0.8); Eosinophils % (auto) 0.2 % (0.0-7.0); Hemoglobin 7.3 g/dL (13.5-17.5); Neutrophils # (auto) 16.9 10 ^3/uL (1.6-8.6)
[2020-10-11 04:34] LABS: Basophils % (auto) 0.2 % (0.0-2.0); Hematocrit 21.7 % (41.0-53.0); Lymphocytes # (auto) 0.6 10 ^3/uL (0.4-5.4); Lymphocytes % (auto) 3.2 % (10.0-50.0); Mean Corpuscular Hemoglobin 31.3 pg (28.0-32.0); Mean Corpuscular Hgb Conc. 33.5 g/dL (32.0-36.0); Mean Corpuscular Volume 93.3 fL (80.0-100.0); Monocytes # (auto) 0.6 10 ^3/uL (0-1.3); Monocytes % (auto) 3.3 % (0.0-12.0); Neutrophils % (auto) 93.1 % (37.0-80.0); Nucleated Red Blood Cells % 0.1 %; Red Blood Cells 2.32 10^6/uL (4.5-5.90); Red Cell Distribution Width 15.1 % (11.8-14.3); White Blood Cell 18.1 10^3/uL (4.4-10.8)
[2020-10-11 04:40] LABS: BUN/Creatinine Ratio 29.3; Calcium 7.2 mg/dL (8.5-10.1)
[2020-10-11] MEDS: InsuLIN REG 1unit/0.01ml Soln (100units/ml) SC SCH ×4 (05:34→18:24)
[2020-10-11] MEDS: ACCU-CHEK COMFORT CURVE STRIP VI SCH ×5 (06:00→23:47)
[2020-10-11] MEDS: levoFLOXacin 500MG 100 ML IV SCH (09:35)
[2020-10-11] MEDS: PANTOPRAZOLE 40 MG/10 ML VIAL INJ IV SCH (10:45)
[2020-10-11] MEDS: MEROPENEM 500MG IVPB 50 ML IV SCH ×2 (10:45→21:46)
[2020-10-11] MEDS: FREE WATER GT SCH ×3 (12:07→23:47)
[2020-10-11] MEDS: NOREPINEPHRINE 8 MG/250ML KIT 250 ML IV SCH (12:45)
[2020-10-11 16:02] LABS: % Iron Saturation 34.3 % (20-55)
[2020-10-12] VITALS (67 sets, daily range): BP systolic 128–168; BP diastolic 63–89
[2020-10-12] MEDS: InsuLIN REG 1unit/0.01ml Soln (100units/ml) SC SCH ×5 (00:05→23:44)
[2020-10-12 06:00] LABS: Basophils # (auto) 0 10 ^3/uL (0-0.2); Eosinophils # (auto) 0 10 ^3/uL (0-0.8); Hemoglobin 7.8 g/dL (13.5-17.5); Lymphocytes # (auto) 0.7 10 ^3/uL (0.4-5.4); Mean Corpuscular Hgb Conc. 33.6 g/dL (32.0-36.0); Neutrophils # (auto) 15.2 10 ^3/uL (1.6-8.6)
[2020-10-12 06:03] LABS: Basophils % (auto) 0.2 % (0.0-2.0); Eosinophils % (auto) 0.1 % (0.0-7.0); Hematocrit 23.3 % (41.0-53.0); Lymphocytes % (auto) 4.2 % (10.0-50.0); Mean Corpuscular Hemoglobin 31.3 pg (28.0-32.0); Mean Corpuscular Volume 93.3 fL (80.0-100.0); Monocytes # (auto) 0.5 10 ^3/uL (0-1.3); Monocytes % (auto) 3.1 % (0.0-12.0); Neutrophils % (auto) 92.4 % (37.0-80.0); White Blood Cell 16.4 10^3/uL (4.4-10.8)
[2020-10-12] MEDS: FREE WATER GT SCH ×4 (06:16→23:43)
[2020-10-12] MEDS: ACCU-CHEK COMFORT CURVE STRIP VI SCH ×4 (06:16→23:42)
[2020-10-12 06:32] LABS: Calcium 8.2 mg/dL (8.5-10.1)
[2020-10-12] MEDS: MEROPENEM 500MG IVPB 50 ML IV SCH ×2 (09:22→21:44)
[2020-10-12] MEDS: PANTOPRAZOLE 40 MG/10 ML VIAL INJ IV SCH (09:22)
[2020-10-12] MEDS: fentaNYL Drip 2500mCg/250mlNS 250 ML IV SCH (10:15)
[2020-10-12] MEDS ORDERED: FUROSEMIDE 40 MG/4 ML VIAL IV ONE (10:30)
[2020-10-12] MEDS ORDERED: hydrALAZINE HCL 20 MG/ML VL IV PRN (11:45)
[2020-10-12] MEDS: NOREPINEPHRINE 8 MG/250ML KIT 250 ML IV SCH (12:45)
[2020-10-13] VITALS (69 sets, daily range): BP systolic 103–156; BP diastolic 56–98
[2020-10-13] MEDS ORDERED: METOPROLOL SUCCINATE XL 50 MG TAB PO ONE (00:15)
[2020-10-13 00:46] LABS: BUN/Creatinine Ratio 30.1; Calcium 8.3 mg/dL (8.5-10.1); Potassium 3.6 mmol/L (3.5-5.1)
[2020-10-13 04:10] LABS: Basophils # (auto) 0 10 ^3/uL (0-0.2); Eosinophils # (auto) 0 10 ^3/uL (0-0.8); Eosinophils % (auto) 0.2 % (0.0-7.0); Mean Corpuscular Volume 92.9 fL (80.0-100.0); Monocytes # (auto) 0.6 10 ^3/uL (0-1.3)
[2020-10-13 04:12] LABS: Basophils % (auto) 0.2 % (0.0-2.0); Hematocrit 21.3 % (41.0-53.0); Hemoglobin 7.2 g/dL (13.5-17.5); Lymphocytes # (auto) 0.7 10 ^3/uL (0.4-5.4); Lymphocytes % (auto) 4.8 % (10.0-50.0); Mean Corpuscular Hemoglobin 31.4 pg (28.0-32.0); Mean Corpuscular Hgb Conc. 33.8 g/dL (32.0-36.0); Monocytes % (auto) 3.8 % (0.0-12.0); Neutrophils # (auto) 13.6 10 ^3/uL (1.6-8.6); Nucleated Red Blood Cells % 0.1 %; Red Blood Cells 2.29 10^6/uL (4.5-5.90); Red Cell Distribution Width 14.7 % (11.8-14.3); White Blood Cell 14.9 10^3/uL (4.4-10.8)
[2020-10-13] MEDS: ACCU-CHEK COMFORT CURVE STRIP VI SCH ×3 (06:00→17:51)
[2020-10-13] MEDS: FREE WATER GT SCH ×5 (06:39→22:17)
[2020-10-13] MEDS: InsuLIN REG 1unit/0.01ml Soln (100units/ml) SC SCH ×3 (06:41→17:57)
[2020-10-13] MEDS: levoFLOXacin 500MG 100 ML IV SCH (09:31)
[2020-10-13] MEDS: METOPROLOL SUCCINATE XL 50 MG TAB PO SCH (09:35)
[2020-10-13] MEDS: PANTOPRAZOLE 40 MG/10 ML VIAL INJ IV SCH (09:35)
[2020-10-13] MEDS ORDERED: FUROSEMIDE 40 MG/4 ML VIAL IV ONE (09:45)
[2020-10-13] MEDS: fentaNYL Drip 2500mCg/250mlNS 250 ML IV SCH (10:15)
[2020-10-13] MEDS: MEROPENEM 500MG IVPB 50 ML IV SCH ×2 (10:23→22:17)
[2020-10-13] MEDS: NOREPINEPHRINE 8 MG/250ML KIT 250 ML IV SCH (12:45)
[2020-10-13] MEDS ORDERED: ROCURONIUM 10MG/ML 10ML VIAL IV ONE ×2 (12:56→13:15)
[2020-10-13 19:18] LABS: Hemoglobin 7.3 g/dL (13.5-17.5)
[2020-10-13 19:20] LABS: Hematocrit 22.4 % (41.0-53.0)
[2020-10-13] MEDS: ACETAMINOPHEN 325 MG TAB PO PRN (20:18)
[2020-10-14] VITALS (52 sets, daily range): BP systolic 84–155; BP diastolic 40–102
[2020-10-14] MEDS: FREE WATER GT SCH ×6 (02:00→21:31)
[2020-10-14] MEDS: ACCU-CHEK COMFORT CURVE STRIP VI SCH ×4 (03:02→17:57)
[2020-10-14 04:06] LABS: Eosinophils # (auto) 0 10 ^3/uL (0-0.8); Lymphocytes # (auto) 0.9 10 ^3/uL (0.4-5.4); Lymphocytes % (auto) 4.8 % (10.0-50.0); Monocytes # (auto) 0.8 10 ^3/uL (0-1.3)
[2020-10-14 04:11] LABS: Basophils # (auto) 0 10 ^3/uL (0-0.2); Basophils % (auto) 0.2 % (0.0-2.0); Hematocrit 21.6 % (41.0-53.0); Hemoglobin 7.2 g/dL (13.5-17.5); Mean Corpuscular Hemoglobin 31.4 pg (28.0-32.0); Mean Corpuscular Hgb Conc. 33.5 g/dL (32.0-36.0); Mean Corpuscular Volume 93.6 fL (80.0-100.0); Neutrophils # (auto) 17.4 10 ^3/uL (1.6-8.6); Nucleated Red Blood Cells % 0.1 %; Red Blood Cells 2.31 10^6/uL (4.5-5.90); Red Cell Distribution Width 14.5 % (11.8-14.3); White Blood Cell 19.1 10^3/uL (4.4-10.8)
[2020-10-14 04:27] LABS: Calcium 8.2 mg/dL (8.5-10.1)
[2020-10-14 04:30] LABS: BUN/Creatinine Ratio 30.8
[2020-10-14 04:43] LABS: Potassium 2.9 mmol/L (3.5-5.1)
[2020-10-14] MEDS ORDERED: POTASSIUM CHL 20MEQ/100ML 100 ML IV ONE (05:45)
[2020-10-14] MEDS: InsuLIN REG 1unit/0.01ml Soln (100units/ml) SC SCH ×4 (06:25→18:05)
[2020-10-14] MEDS ORDERED: LORazepam 2MG/ML-1ML VIAL IV PRN (09:45)
[2020-10-14] MEDS: PANTOPRAZOLE 40 MG/10 ML VIAL INJ IV SCH (09:47)
[2020-10-14] MEDS: MEROPENEM 500MG IVPB 50 ML IV SCH ×2 (09:48→21:31)
[2020-10-14] MEDS: METOPROLOL SUCCINATE XL 50 MG TAB PO SCH (09:48)
[2020-10-14] MEDS: POTASSIUM CHL 20MEQ/100ML 100 ML IV SCH ×2 (09:56→10:50)
[2020-10-14] MEDS: fentaNYL Drip 2500mCg/250mlNS 250 ML IV SCH (10:15)
[2020-10-14] MEDS: NOREPINEPHRINE 8 MG/250ML KIT 250 ML IV SCH (12:45)
[2020-10-14] MEDS: ACETAMINOPHEN 325 MG TAB PO PRN (16:28)
[2020-10-14 19:28] LABS: Hematocrit 21.4 % (41.0-53.0)
[2020-10-14 19:33] LABS: Hemoglobin 6.9 g/dL (13.5-17.5)
[2020-10-14 19:40] LABS: BUN/Creatinine Ratio 28.4; Calcium 7.7 mg/dL (8.5-10.1); Potassium 3.6 mmol/L (3.5-5.1)
[2020-10-14] MEDS ORDERED: diphenhdrAMINE HCL 50 MG/1 ML VL IV PRN (20:00)
[2020-10-15] VITALS (82 sets, daily range): BP systolic 106–158; BP diastolic 52–117
[2020-10-15] MEDS: ACCU-CHEK COMFORT CURVE STRIP VI SCH ×6 (00:02→22:17)
[2020-10-15] MEDS: FREE WATER GT SCH ×6 (02:00→21:46)
[2020-10-15] MEDS: ACETAMINOPHEN 325 MG TAB PO PRN (04:36)
[2020-10-15 05:18] LABS: Basophils # (auto) 0 10 ^3/uL (0-0.2); Basophils % (auto) 0.2 % (0.0-2.0); Eosinophils # (auto) 0 10 ^3/uL (0-0.8); Eosinophils % (auto) 0.1 % (0.0-7.0); Hemoglobin 10.9 g/dL (13.5-17.5); Lymphocytes # (auto) 1.1 10 ^3/uL (0.4-5.4); Lymphocytes % (auto) 5.5 % (10.0-50.0); Mean Corpuscular Hemoglobin 29.7 pg (28.0-32.0); Mean Corpuscular Hgb Conc. 33.1 g/dL (32.0-36.0); Mean Corpuscular Volume 89.7 fL (80.0-100.0); Monocytes # (auto) 0.8 10 ^3/uL (0-1.3); Monocytes % (auto) 4.2 % (0.0-12.0); Red Blood Cells 3.68 10^6/uL (4.5-5.90); Red Cell Distribution Width 14.9 % (11.8-14.3)
[2020-10-15 05:37] LABS: BUN/Creatinine Ratio 27.8; Potassium 3.5 mmol/L (3.5-5.1)
[2020-10-15] MEDS: InsuLIN REG 1unit/0.01ml Soln (100units/ml) SC SCH ×6 (05:40→22:24)
[2020-10-15] MEDS: METOPROLOL SUCCINATE XL 50 MG TAB PO SCH (10:00)
[2020-10-15] MEDS: fentaNYL Drip 2500mCg/250mlNS 250 ML IV SCH (10:15)
[2020-10-15] MEDS: PANTOPRAZOLE 40 MG/10 ML VIAL INJ IV SCH (10:16)
[2020-10-15] MEDS: MEROPENEM 500MG IVPB 50 ML IV SCH ×2 (10:17→22:24)
[2020-10-15] MEDS: levoFLOXacin 500MG 100 ML IV SCH (10:17)
[2020-10-15] MEDS ORDERED: POTASSIUM EFFERVESENT TAB 25 MEQ GT ONE (11:00)
[2020-10-15] MEDS: D5W 5% 1,000 ML IV SCH ×2 (11:41→22:24)
[2020-10-15] MEDS: NOREPINEPHRINE 8 MG/250ML KIT 250 ML IV SCH (11:49)
[2020-10-15] MEDS ORDERED: FLUCONAZOLE 200MG/100ML 100 ML IV ONE (13:00)
[2020-10-15] MEDS: METOPROLOL TARTRATE 25 MG TAB PO SCH (21:46)
[2020-10-16] VITALS (20 sets, daily range): BP systolic 119–160; BP diastolic 59–80
[2020-10-16] MEDS: FREE WATER GT SCH ×3 (01:43→10:35)
[2020-10-16] MEDS: ACCU-CHEK COMFORT CURVE STRIP VI SCH ×5 (02:00→18:21)
[2020-10-16] MEDS: InsuLIN REG 1unit/0.01ml Soln (100units/ml) SC SCH ×5 (02:43→18:00)
[2020-10-16 04:47] LABS: Basophils # (auto) 0 10 ^3/uL (0-0.2); Basophils % (auto) 0.2 % (0.0-2.0); Eosinophils # (auto) 0 10 ^3/uL (0-0.8); Eosinophils % (auto) 0.1 % (0.0-7.0); Hematocrit 31.8 % (41.0-53.0); Hemoglobin 10.6 g/dL (13.5-17.5); Lymphocytes % (auto) 5.9 % (10.0-50.0); Mean Corpuscular Hemoglobin 30.1 pg (28.0-32.0); Mean Corpuscular Hgb Conc. 33.3 g/dL (32.0-36.0); Mean Corpuscular Volume 90.3 fL (80.0-100.0); Monocytes # (auto) 0.6 10 ^3/uL (0-1.3); Monocytes % (auto) 3.8 % (0.0-12.0); Neutrophils # (auto) 14.7 10 ^3/uL (1.6-8.6); Red Blood Cells 3.52 10^6/uL (4.5-5.90); Red Cell Distribution Width 15.5 % (11.8-14.3); White Blood Cell 16.4 10^3/uL (4.4-10.8)
[2020-10-16 05:05] LABS: Calcium 7.3 mg/dL (8.5-10.1); Potassium 3.3 mmol/L (3.5-5.1)
[2020-10-16 05:10] LABS: Albumin 1.6 g/dL (3.4-5.0); BUN/Creatinine Ratio 24.6; Bilirubin, Total 0.5 mg/dL (0.2-1.0); Phosphorus 2.8 mg/dL (2.5-4.90); Total Protein 5.4 g/dL (6.4-8.2)
[2020-10-16] MEDS: D5W 5% 1,000 ML IV SCH (07:21)
[2020-10-16] MEDS: fentaNYL Drip 2500mCg/250mlNS 250 ML IV SCH (10:15)
[2020-10-16] MEDS: METOPROLOL TARTRATE 25 MG TAB PO SCH ×2 (10:35→21:08)
[2020-10-16] MEDS: FLUCONAZOLE 200MG/100ML 100 ML IV SCH (10:41)
[2020-10-16] MEDS: PANTOPRAZOLE 40 MG/10 ML VIAL INJ IV SCH (10:41)
[2020-10-16] MEDS: MEROPENEM 500MG IVPB 50 ML IV SCH ×2 (10:42→21:08)
[2020-10-16] MEDS: SOD CHL 0.45% WITH 20MEQ KCL 1,000 ML IV SCH ×2 (11:52→21:07)
[2020-10-16] MEDS: NOREPINEPHRINE 8 MG/250ML KIT 250 ML IV SCH (11:52)
[2020-10-16] MEDS ORDERED: ALBUMIN 25% 50 ML IV ONE (13:00)
[2020-10-16] MEDS: DEXTROSE (50%) 50ML SYRG IV PRN (13:53)
[2020-10-16] MEDS ORDERED: ACETYLCYSTEINE 20%(200MG/ML) SOL 4ML NEB SCH (14:00)
[2020-10-17] VITALS (19 sets, daily range): BP systolic 123–161; BP diastolic 61–86
[2020-10-17] MEDS: ACCU-CHEK COMFORT CURVE STRIP VI SCH ×4 (00:02→18:06)
[2020-10-17 04:22] LABS: Basophils # (auto) 0 10 ^3/uL (0-0.2); Basophils % (auto) 0.3 % (0.0-2.0); Eosinophils # (auto) 0 10 ^3/uL (0-0.8); Eosinophils % (auto) 0.1 % (0.0-7.0); Hemoglobin 10.2 g/dL (13.5-17.5); Lymphocytes # (auto) 0.8 10 ^3/uL (0.4-5.4); Mean Corpuscular Hgb Conc. 32.9 g/dL (32.0-36.0); Mean Corpuscular Volume 91.1 fL (80.0-100.0); Monocytes # (auto) 0.7 10 ^3/uL (0-1.3); Monocytes % (auto) 4.3 % (0.0-12.0); Neutrophils # (auto) 14.6 10 ^3/uL (1.6-8.6); Neutrophils % (auto) 90.3 % (37.0-80.0); Red Cell Distribution Width 15.5 % (11.8-14.3); White Blood Cell 16.1 10^3/uL (4.4-10.8)
[2020-10-17 04:40] LABS: Potassium 3.4 mmol/L (3.5-5.1)
[2020-10-17 04:46] LABS: Albumin 1.8 g/dL (3.4-5.0); Bilirubin, Total 0.7 mg/dL (0.2-1.0); Calcium 7.1 mg/dL (8.5-10.1); Total Protein 5.2 g/dL (6.4-8.2)
[2020-10-17] MEDS: InsuLIN REG 1unit/0.01ml Soln (100units/ml) SC SCH ×4 (05:42→18:10)
[2020-10-17] MEDS: SOD CHL 0.45% WITH 20MEQ KCL 1,000 ML IV SCH ×2 (07:10→14:11)
[2020-10-17] MEDS: METOPROLOL TARTRATE 25 MG TAB PO SCH ×2 (10:11→21:58)
[2020-10-17] MEDS: PANTOPRAZOLE 40 MG/10 ML VIAL INJ IV SCH (10:12)
[2020-10-17] MEDS ORDERED: POTASSIUM EFFERVESENT TAB 25 MEQ PO ONE (10:15)
[2020-10-17] MEDS: FLUCONAZOLE 200MG/100ML 100 ML IV SCH (10:18)
[2020-10-17] MEDS: levoFLOXacin 500MG 100 ML IV SCH (10:21)
[2020-10-17] MEDS: MEROPENEM 500MG IVPB 50 ML IV SCH (11:39)
[2020-10-17] MEDS ORDERED: POTASSIUM CHL 20MEQ/100ML 100 ML IV ONE (12:00)
[2020-10-17] MEDS: MEROPENEM 1GM IVPB 100 ML IV SCH (21:56)
[2020-10-18] VITALS (20 sets, daily range): BP systolic 111–158; BP diastolic 52–76
[2020-10-18] MEDS: ACCU-CHEK COMFORT CURVE STRIP VI SCH ×5 (00:10→23:35)
[2020-10-18 04:05] LABS: Basophils # (auto) 0 10 ^3/uL (0-0.2); Basophils % (auto) 0.4 % (0.0-2.0); Eosinophils # (auto) 0 10 ^3/uL (0-0.8); Eosinophils % (auto) 0.2 % (0.0-7.0); Hematocrit 29.2 % (41.0-53.0); Hemoglobin 9.7 g/dL (13.5-17.5); Lymphocytes % (auto) 8.3 % (10.0-50.0); Mean Corpuscular Hemoglobin 30.2 pg (28.0-32.0); Mean Corpuscular Hgb Conc. 33.1 g/dL (32.0-36.0); Mean Corpuscular Volume 91.2 fL (80.0-100.0); Monocytes # (auto) 0.7 10 ^3/uL (0-1.3); Monocytes % (auto) 5.5 % (0.0-12.0); Neutrophils # (auto) 10.7 10 ^3/uL (1.6-8.6); Neutrophils % (auto) 85.6 % (37.0-80.0); White Blood Cell 12.4 10^3/uL (4.4-10.8)
[2020-10-18 04:32] LABS: Albumin 1.6 g/dL (3.4-5.0); Calcium 6.8 mg/dL (8.5-10.1); Potassium 3.4 mmol/L (3.5-5.1)
[2020-10-18 04:37] LABS: Bilirubin, Total 0.5 mg/dL (0.2-1.0)
[2020-10-18] MEDS: SOD CHL 0.45% WITH 20MEQ KCL 1,000 ML IV SCH ×3 (04:40→14:30)
[2020-10-18] MEDS: InsuLIN REG 1unit/0.01ml Soln (100units/ml) SC SCH ×5 (05:32→23:47)
[2020-10-18] MEDS: METOPROLOL TARTRATE 25 MG TAB PO SCH ×2 (10:00→22:00)
[2020-10-18] MEDS: FLUCONAZOLE 200MG/100ML 100 ML IV SCH (10:14)
[2020-10-18] MEDS: POTASSIUM CHL 20MEQ/100ML 100 ML IV SCH ×2 (10:25→12:23)
[2020-10-18] MEDS: MEROPENEM 1GM IVPB 100 ML IV SCH ×2 (12:23→22:22)
[2020-10-18] MEDS: PANTOPRAZOLE 40 MG/10 ML VIAL INJ IV SCH (12:24)
[2020-10-18] MEDS ORDERED: ALBUMIN 25% 50 ML IV ONE (14:00)
[2020-10-18 22:49] LABS: Potassium 3.8 mmol/L (3.5-5.1)
[2020-10-18 23:01] LABS: Magnesium 0.9 mg/dL (1.6-2.6)
[2020-10-18] MEDS ORDERED: MAGNESIUM SULFATE 1GM/100ML 100 ML IV ONE (23:30)
[2020-10-18] MEDS: MAGNESIUM SULFATE 1GM/100ML 100 ML IV SCH (23:38)
[2020-10-19] VITALS (18 sets, daily range): BP systolic 113–159; BP diastolic 43–88
[2020-10-19] MEDS: MAGNESIUM SULFATE 1GM/100ML 100 ML IV SCH ×2 (00:57→01:50)
[2020-10-19 04:36] LABS: Basophils # (auto) 0 10 ^3/uL (0-0.2); Basophils % (auto) 0.3 % (0.0-2.0); Eosinophils # (auto) 0 10 ^3/uL (0-0.8); Eosinophils % (auto) 0.3 % (0.0-7.0); Hematocrit 28.6 % (41.0-53.0); Hemoglobin 9.7 g/dL (13.5-17.5); Lymphocytes # (auto) 0.9 10 ^3/uL (0.4-5.4); Lymphocytes % (auto) 8.2 % (10.0-50.0); Mean Corpuscular Hemoglobin 30.7 pg (28.0-32.0); Mean Corpuscular Hgb Conc. 33.9 g/dL (32.0-36.0); Mean Corpuscular Volume 90.4 fL (80.0-100.0); Monocytes # (auto) 0.5 10 ^3/uL (0-1.3); Monocytes % (auto) 4.9 % (0.0-12.0); Neutrophils # (auto) 9.1 10 ^3/uL (1.6-8.6); Neutrophils % (auto) 86.3 % (37.0-80.0); Red Blood Cells 3.16 10^6/uL (4.5-5.90); Red Cell Distribution Width 15.2 % (11.8-14.3); White Blood Cell 10.6 10^3/uL (4.4-10.8)
[2020-10-19 04:49] LABS: Albumin 1.9 g/dL (3.4-5.0); Calcium 7.1 mg/dL (8.5-10.1); Magnesium 2.1 mg/dL (1.6-2.6); Potassium 3.7 mmol/L (3.5-5.1)
[2020-10-19 04:52] LABS: BUN/Creatinine Ratio 18.6; Bilirubin, Total 0.4 mg/dL (0.2-1.0); Total Protein 5.3 g/dL (6.4-8.2)
[2020-10-19] MEDS: InsuLIN REG 1unit/0.01ml Soln (100units/ml) SC SCH ×2 (06:11→17:43)
[2020-10-19] MEDS: ACCU-CHEK COMFORT CURVE STRIP VI SCH ×2 (06:11→17:43)
[2020-10-19] MEDS: SOD CHL 0.45% WITH 20MEQ KCL 1,000 ML IV SCH (06:12)
[2020-10-19] MEDS: MEROPENEM 1GM IVPB 100 ML IV SCH ×2 (08:59→21:26)
[2020-10-19] MEDS: PANTOPRAZOLE 40 MG/10 ML VIAL INJ IV SCH (08:59)
[2020-10-19] MEDS: METOPROLOL TARTRATE 25 MG TAB PO SCH ×2 (10:56→21:27)
[2020-10-19] MEDS: FLUCONAZOLE 200MG/100ML 100 ML IV SCH (10:57)
[2020-10-19] MEDS ORDERED: FUROSEMIDE 20 MG/2 ML VIAL IV ONE (14:00)
[2020-10-19] MEDS ORDERED: levoFLOXacin 500 MG TAB PO ONE (14:15)
[2020-10-19] MEDS ORDERED: InsuLIN REG 1unit/0.01ml Soln (100units/ml) ONE (21:42)
[2020-10-20] MEDS: ACCU-CHEK COMFORT CURVE STRIP VI SCH ×4 (00:11→17:38)
[2020-10-20] MEDS: InsuLIN REG 1unit/0.01ml Soln (100units/ml) SC SCH ×4 (00:20→17:37)
[2020-10-20 05:49] VITALS: BP 119/67
[2020-10-20 07:09] LABS: Basophils # (auto) 0.1 10 ^3/uL (0-0.2); Basophils % (auto) 0.6 % (0.0-2.0); Eosinophils # (auto) 0 10 ^3/uL (0-0.8); Eosinophils % (auto) 0.5 % (0.0-7.0); Hematocrit 28.8 % (41.0-53.0); Hemoglobin 9.7 g/dL (13.5-17.5); Lymphocytes # (auto) 1.1 10 ^3/uL (0.4-5.4); Lymphocytes % (auto) 11.6 % (10.0-50.0); Mean Corpuscular Hemoglobin 29.9 pg (28.0-32.0); Mean Corpuscular Hgb Conc. 33.7 g/dL (32.0-36.0); Mean Corpuscular Volume 88.8 fL (80.0-100.0); Monocytes # (auto) 0.7 10 ^3/uL (0-1.3); Monocytes % (auto) 7.3 % (0.0-12.0); Neutrophils # (auto) 7.5 10 ^3/uL (1.6-8.6); Red Blood Cells 3.24 10^6/uL (4.5-5.90); Red Cell Distribution Width 14.5 % (11.8-14.3); White Blood Cell 9.3 10^3/uL (4.4-10.8)
[2020-10-20 07:16] LABS: Albumin 1.8 g/dL (3.4-5.0); Calcium 7.4 mg/dL (8.5-10.1); Magnesium 1.5 mg/dL (1.6-2.6); Potassium 3.3 mmol/L (3.5-5.1)
[2020-10-20 07:21] LABS: BUN/Creatinine Ratio 18.6; Bilirubin, Total 0.4 mg/dL (0.2-1.0); Phosphorus 2.3 mg/dL (2.5-4.90); Total Protein 5.5 g/dL (6.4-8.2)
[2020-10-20 09:00] VITALS: BP 154/70
[2020-10-20] MEDS: FLUCONAZOLE 200MG/100ML 100 ML IV SCH (09:31)
[2020-10-20] MEDS: levoFLOXacin 500 MG TAB PO SCH (09:32)
[2020-10-20] MEDS: METOPROLOL TARTRATE 25 MG TAB PO SCH ×2 (09:33→23:08)
[2020-10-20] MEDS: PANTOPRAZOLE 40 MG TAB PO SCH (09:34)
[2020-10-20] MEDS: MEROPENEM 1GM IVPB 100 ML IV SCH ×2 (11:35→23:07)
[2020-10-20] MEDS ORDERED: MAGNESIUM SULFATE 1GM/100ML 100 ML IV ONE (12:30)
[2020-10-20] MEDS ORDERED: POTASSIUM EFFERVESENT TAB 25 MEQ PO ONE (12:30)
[2020-10-20 13:00] VITALS: BP 138/61
[2020-10-20 17:00] VITALS: BP 133/62
[2020-10-20 23:44] VITALS: BP 138/72
[2020-10-21] MEDS: InsuLIN REG 1unit/0.01ml Soln (100units/ml) SC SCH ×5 (00:22→23:51)
[2020-10-21] MEDS: ACCU-CHEK COMFORT CURVE STRIP VI SCH ×5 (00:23→23:47)
[2020-10-21 05:17] VITALS: BP 140/74
[2020-10-21 07:34] LABS: Albumin 1.8 g/dL (3.4-5.0); Calcium 7.6 mg/dL (8.5-10.1); Potassium 3.4 mmol/L (3.5-5.1)
[2020-10-21 07:35] LABS: Basophils # (auto) 0 10 ^3/uL (0-0.2); Basophils % (auto) 0.5 % (0.0-2.0); Eosinophils # (auto) 0.1 10 ^3/uL (0-0.8); Eosinophils % (auto) 0.5 % (0.0-7.0); Hematocrit 30.1 % (41.0-53.0); Lymphocytes # (auto) 1.1 10 ^3/uL (0.4-5.4); Lymphocytes % (auto) 10.5 % (10.0-50.0); Mean Corpuscular Hemoglobin 30.4 pg (28.0-32.0); Mean Corpuscular Hgb Conc. 33.4 g/dL (32.0-36.0); Monocytes # (auto) 0.9 10 ^3/uL (0-1.3); Neutrophils # (auto) 8.7 10 ^3/uL (1.6-8.6); Neutrophils % (auto) 80.5 % (37.0-80.0); Red Blood Cells 3.31 10^6/uL (4.5-5.90); Red Cell Distribution Width 15.2 % (11.8-14.3); White Blood Cell 10.7 10^3/uL (4.4-10.8)
[2020-10-21 07:37] LABS: BUN/Creatinine Ratio 14.4
[2020-10-21 07:39] LABS: Bilirubin, Total 0.5 mg/dL (0.2-1.0); Total Protein 5.7 g/dL (6.4-8.2)
[2020-10-21 08:49] VITALS: BP 125/67
[2020-10-21] MEDS: MEROPENEM 1GM IVPB 100 ML IV SCH ×2 (09:35→23:47)
[2020-10-21] MEDS: PANTOPRAZOLE 40 MG TAB PO SCH (09:35)
[2020-10-21] MEDS: METOPROLOL TARTRATE 25 MG TAB PO SCH ×2 (09:35→22:00)
[2020-10-21] MEDS: levoFLOXacin 500 MG TAB PO SCH (09:35)
[2020-10-21] MEDS: FLUCONAZOLE 200MG/100ML 100 ML IV SCH (09:35)
[2020-10-21] MEDS ORDERED: POTASSIUM EFFERVESENT TAB 25 MEQ PO ONE (11:30)
[2020-10-21 13:00] VITALS: BP 149/74
[2020-10-21] MEDS: MAGNESIUM SULFATE 1GM/100ML 100 ML IV SCH ×2 (16:05→18:40)
[2020-10-21 17:00] VITALS: BP 137/75
[2020-10-21] MEDS ORDERED: MAGNESIUM SULFATE 1GM/100ML 100 ML IV ONE (18:16)
[2020-10-21 22:51] VITALS: BP 126/72
[2020-10-22 05:25] VITALS: BP 155/73
[2020-10-22] MEDS: InsuLIN REG 1unit/0.01ml Soln (100units/ml) SC SCH ×3 (06:00→17:49)
[2020-10-22] MEDS: ACCU-CHEK COMFORT CURVE STRIP VI SCH ×3 (06:12→17:49)
[2020-10-22 07:49] LABS: Basophils # (auto) 0.1 10 ^3/uL (0-0.2); Basophils % (auto) 0.7 % (0.0-2.0); Eosinophils # (auto) 0 10 ^3/uL (0-0.8); Eosinophils % (auto) 0.5 % (0.0-7.0); Hematocrit 28.5 % (41.0-53.0); Hemoglobin 9.5 g/dL (13.5-17.5); Lymphocytes % (auto) 10.8 % (10.0-50.0); Mean Corpuscular Hemoglobin 30.7 pg (28.0-32.0); Mean Corpuscular Hgb Conc. 33.4 g/dL (32.0-36.0); Monocytes # (auto) 0.7 10 ^3/uL (0-1.3); Monocytes % (auto) 8.2 % (0.0-12.0); Neutrophils % (auto) 79.8 % (37.0-80.0); Nucleated Red Blood Cells % 0.1 %; Red Cell Distribution Width 15.2 % (11.8-14.3); White Blood Cell 8.8 10^3/uL (4.4-10.8)
[2020-10-22 08:08] LABS: Albumin 1.7 g/dL (3.4-5.0); Calcium 7.8 mg/dL (8.5-10.1); Potassium 3.3 mmol/L (3.5-5.1)
[2020-10-22 08:12] LABS: Bilirubin, Total 0.4 mg/dL (0.2-1.0); Total Protein 5.5 g/dL (6.4-8.2)
[2020-10-22 09:00] VITALS: BP 136/70
[2020-10-22] MEDS: FLUCONAZOLE 200MG/100ML 100 ML IV SCH (09:50)
[2020-10-22] MEDS: METOPROLOL TARTRATE 25 MG TAB PO SCH ×2 (09:50→22:12)
[2020-10-22] MEDS: PANTOPRAZOLE 40 MG TAB PO SCH (09:50)
[2020-10-22] MEDS: levoFLOXacin 500 MG TAB PO SCH (09:50)
[2020-10-22] MEDS: MEROPENEM 1GM IVPB 100 ML IV SCH ×2 (09:51→22:12)
[2020-10-22] MEDS ORDERED: POTASSIUM EFFERVESENT TAB 25 MEQ PO ONE (11:15)
[2020-10-22] MEDS ORDERED: DEXTROSE (50%) 50ML SYRG IV PRN (11:15)
[2020-10-22] MEDS ORDERED: ENOXAPARIN SOD 40 MG/0.4 ML SYRINGE SC ONE (11:30)
[2020-10-22] MEDS: Glucerna Carbsteady SHAKE Vanilla 8oz PO SCH ×2 (12:26→17:49)
[2020-10-22 12:53] VITALS: BP 143/50
[2020-10-22 16:54] VITALS: BP 147/100
[2020-10-22 22:00] VITALS: BP 121/67
[2020-10-22] MEDS: ACETAMINOPHEN 325 MG TAB PO PRN (22:14)
[2020-10-23 00:04] VITALS: BP 133/80
[2020-10-23] MEDS: ACCU-CHEK COMFORT CURVE STRIP VI SCH ×4 (00:19→18:21)
[2020-10-23] MEDS: InsuLIN REG 1unit/0.01ml Soln (100units/ml) SC SCH ×4 (00:21→18:00)
[2020-10-23] MEDS: HYDROcodone-ACET 5/325MG TAB PO PRN ×2 (04:16→15:58)
[2020-10-23 05:00] VITALS: BP 198/71
[2020-10-23 06:29] LABS: Potassium 3.4 mmol/L (3.5-5.1)
[2020-10-23] MEDS: Glucerna Carbsteady SHAKE Vanilla 8oz PO SCH ×3 (09:29→18:21)
[2020-10-23] MEDS: PANTOPRAZOLE 40 MG TAB PO SCH (09:30)
[2020-10-23] MEDS: levoFLOXacin 500 MG TAB PO SCH (09:30)
[2020-10-23] MEDS: FLUCONAZOLE 200MG/100ML 100 ML IV SCH (09:30)
[2020-10-23] MEDS: MEROPENEM 1GM IVPB 100 ML IV SCH ×2 (09:30→21:48)
[2020-10-23] MEDS: ENOXAPARIN SOD 40 MG/0.4 ML SYRINGE SC SCH (09:31)
[2020-10-23] MEDS: METOPROLOL TARTRATE 25 MG TAB PO SCH ×2 (10:00→21:49)
[2020-10-23] MEDS ORDERED: ENOXAPARIN SOD 40 MG/0.4 ML SYRINGE SC SCH (10:00)
[2020-10-23] MEDS ORDERED: ALBUMIN 25% 50 ML IV ONE (12:30)
[2020-10-23] MEDS ORDERED: POTASSIUM EFFERVESENT TAB 25 MEQ PO ONE (12:30)
[2020-10-23 13:00] VITALS: BP 134/74
[2020-10-23 17:00] VITALS: BP 140/70
[2020-10-23 22:01] VITALS: BP 142/73
[2020-10-24] MEDS: ACCU-CHEK COMFORT CURVE STRIP VI SCH ×4 (00:45→17:08)
[2020-10-24 05:00] VITALS: BP 143/72
[2020-10-24] MEDS: InsuLIN REG 1unit/0.01ml Soln (100units/ml) SC SCH ×4 (05:51→17:31)
[2020-10-24 06:05] LABS: Basophils # (auto) 0.1 10 ^3/uL (0-0.2); Basophils % (auto) 0.9 % (0.0-2.0); Eosinophils # (auto) 0.1 10 ^3/uL (0-0.8); Eosinophils % (auto) 1.1 % (0.0-7.0); Hemoglobin 10.5 g/dL (13.5-17.5); Lymphocytes # (auto) 0.8 10 ^3/uL (0.4-5.4); Lymphocytes % (auto) 11.6 % (10.0-50.0); Mean Corpuscular Hemoglobin 31.5 pg (28.0-32.0); Mean Corpuscular Hgb Conc. 33.9 g/dL (32.0-36.0); Mean Corpuscular Volume 92.9 fL (80.0-100.0); Monocytes # (auto) 0.6 10 ^3/uL (0-1.3); Monocytes % (auto) 8.7 % (0.0-12.0); Neutrophils # (auto) 5.3 10 ^3/uL (1.6-8.6); Neutrophils % (auto) 77.7 % (37.0-80.0); Red Blood Cells 3.34 10^6/uL (4.5-5.90); Red Cell Distribution Width 15.4 % (11.8-14.3); White Blood Cell 6.8 10^3/uL (4.4-10.8)
[2020-10-24 06:19] LABS: BUN/Creatinine Ratio 12.2; Calcium 8.4 mg/dL (8.5-10.1); Potassium 3.6 mmol/L (3.5-5.1)
[2020-10-24 09:00] VITALS: BP 131/80
[2020-10-24] MEDS: PANTOPRAZOLE 40 MG TAB PO SCH (10:16)
[2020-10-24] MEDS: MEROPENEM 1GM IVPB 100 ML IV SCH (10:16)
[2020-10-24] MEDS: ENOXAPARIN SOD 40 MG/0.4 ML SYRINGE SC SCH (10:16)
[2020-10-24] MEDS: METOPROLOL TARTRATE 25 MG TAB PO SCH ×2 (10:18→22:20)
[2020-10-24] MEDS: FLUCONAZOLE 200MG/100ML 100 ML IV SCH (10:19)
[2020-10-24] MEDS: levoFLOXacin 500 MG TAB PO SCH (10:19)
[2020-10-24] MEDS: HYDROcodone-ACET 5/325MG TAB PO PRN ×2 (10:23→18:50)
[2020-10-24] MEDS: Glucerna Carbsteady SHAKE Vanilla 8oz PO SCH ×3 (10:35→18:49)
[2020-10-24 13:00] VITALS: BP 132/63
[2020-10-24] MEDS ORDERED: SOD CHL 0.45% 1,000 ML IV ONE (15:15)
[2020-10-24 16:42] VITALS: BP 125/75
[2020-10-24 22:00] VITALS: BP_SYST 128; BP_SYST 137; BP_DIAS 78; BP_DIAS 80
[2020-10-25] MEDS: ACCU-CHEK COMFORT CURVE STRIP VI SCH ×5 (00:01→23:27)
[2020-10-25] MEDS: InsuLIN REG 1unit/0.01ml Soln (100units/ml) SC SCH ×5 (00:10→23:27)
[2020-10-25 05:00] VITALS: BP 143/76
[2020-10-25 06:23] LABS: Calcium 7.8 mg/dL (8.5-10.1); Potassium 3.1 mmol/L (3.5-5.1)
[2020-10-25 06:26] LABS: BUN/Creatinine Ratio 14.6
[2020-10-25] MEDS: Glucerna Carbsteady SHAKE Vanilla 8oz PO SCH ×3 (08:00→18:18)
[2020-10-25 09:15] VITALS: BP 111/55
[2020-10-25] MEDS: FLUCONAZOLE 200MG/100ML 100 ML IV SCH (10:07)
[2020-10-25] MEDS: PANTOPRAZOLE 40 MG TAB PO SCH (10:08)
[2020-10-25] MEDS: ENOXAPARIN SOD 30 MG/0.3 ML SYRINGE SC SCH (10:08)
[2020-10-25] MEDS: levoFLOXacin 500 MG TAB PO SCH (10:08)
[2020-10-25] MEDS: METOPROLOL TARTRATE 25 MG TAB PO SCH ×2 (10:17→23:27)
[2020-10-25 13:11] VITALS: BP 137/73
[2020-10-25] MEDS ORDERED: POTASSIUM CHL 20 Meq TABLET PO ONE (13:45)
[2020-10-25] MEDS ORDERED: POTASSIUM EFFERVESENT TAB 25 MEQ GT ONE (14:15)
[2020-10-25 16:25] VITALS: BP 148/95
[2020-10-25] MEDS: HYDROcodone-ACET 5/325MG TAB PO PRN (18:07)
[2020-10-25 22:00] VITALS: BP 129/74
[2020-10-26 05:18] VITALS: BP 158/102
[2020-10-26] MEDS: InsuLIN REG 1unit/0.01ml Soln (100units/ml) SC SCH ×4 (05:27→23:06)
[2020-10-26] MEDS: ACCU-CHEK COMFORT CURVE STRIP VI SCH ×4 (05:28→23:35)
[2020-10-26] MEDS: Glucerna Carbsteady SHAKE Vanilla 8oz PO SCH ×3 (08:00→18:08)
[2020-10-26 08:55] VITALS: BP 152/72
[2020-10-26] MEDS: METOPROLOL TARTRATE 25 MG TAB PO SCH ×2 (10:25→23:35)
[2020-10-26] MEDS: levoFLOXacin 500 MG TAB PO SCH (10:25)
[2020-10-26] MEDS: FLUCONAZOLE 200MG/100ML 100 ML IV SCH (10:25)
[2020-10-26] MEDS: PANTOPRAZOLE 40 MG TAB PO SCH (10:26)
[2020-10-26] MEDS: ENOXAPARIN SOD 30 MG/0.3 ML SYRINGE SC SCH (10:26)
[2020-10-26 12:45] VITALS: BP 118/60
[2020-10-26] MEDS: HYDROcodone-ACET 5/325MG TAB PO PRN (15:09)
[2020-10-26 16:30] VITALS: BP 123/59
[2020-10-26 22:00] VITALS: BP 119/66
[2020-10-27] MEDS: ACCU-CHEK COMFORT CURVE STRIP VI SCH ×4 (05:46→23:04)
[2020-10-27] MEDS: InsuLIN REG 1unit/0.01ml Soln (100units/ml) SC SCH ×4 (05:46→23:06)
[2020-10-27 08:08] LABS: Basophils # (auto) 0 10 ^3/uL (0-0.2); Basophils % (auto) 0.4 % (0.0-2.0); Eosinophils # (auto) 0.1 10 ^3/uL (0-0.8); Eosinophils % (auto) 0.9 % (0.0-7.0); Hematocrit 31.8 % (41.0-53.0); Hemoglobin 10.7 g/dL (13.5-17.5); Lymphocytes # (auto) 1.7 10 ^3/uL (0.4-5.4); Lymphocytes % (auto) 17.4 % (10.0-50.0); Mean Corpuscular Hemoglobin 30.3 pg (28.0-32.0); Mean Corpuscular Hgb Conc. 33.7 g/dL (32.0-36.0); Mean Corpuscular Volume 90.1 fL (80.0-100.0); Monocytes # (auto) 0.6 10 ^3/uL (0-1.3); Monocytes % (auto) 6.7 % (0.0-12.0); Neutrophils # (auto) 7.1 10 ^3/uL (1.6-8.6); Neutrophils % (auto) 74.6 % (37.0-80.0); Nucleated Red Blood Cells % 0.1 %; Red Blood Cells 3.54 10^6/uL (4.5-5.90); Red Cell Distribution Width 15.1 % (11.8-14.3); White Blood Cell 9.6 10^3/uL (4.4-10.8)
[2020-10-27 08:33] LABS: Potassium 3.4 mmol/L (3.5-5.1)
[2020-10-27 08:37] LABS: Albumin 2.1 g/dL (3.4-5.0); BUN/Creatinine Ratio 14.6; Calcium 8.2 mg/dL (8.5-10.1)
[2020-10-27 08:39] LABS: Bilirubin, Total 0.4 mg/dL (0.2-1.0); Total Protein 5.7 g/dL (6.4-8.2)
[2020-10-27 09:00] VITALS: BP 113/63
[2020-10-27] MEDS: ENOXAPARIN SOD 30 MG/0.3 ML SYRINGE SC SCH (10:40)
[2020-10-27] MEDS: levoFLOXacin 500 MG TAB PO SCH (10:40)
[2020-10-27] MEDS: FLUCONAZOLE 200MG/100ML 100 ML IV SCH (10:40)
[2020-10-27] MEDS: METOPROLOL TARTRATE 25 MG TAB PO SCH (10:41)
[2020-10-27] MEDS: PANTOPRAZOLE 40 MG TAB PO SCH (10:42)
[2020-10-27] MEDS: HYDROcodone-ACET 5/325MG TAB PO PRN (10:44)
[2020-10-27] MEDS: Glucerna Carbsteady SHAKE Vanilla 8oz PO SCH ×3 (12:17→17:44)
[2020-10-27 13:00] VITALS: BP 90/57
[2020-10-27 14:13] VITALS: BP 111/63
[2020-10-27] MEDS ORDERED: SODIUM CHLORIDE 0.9% 1,000 ML IV ONE (14:30)
[2020-10-27 15:31] VITALS: BP 131/70
[2020-10-27 17:00] VITALS: BP 136/81
[2020-10-27 22:00] VITALS: BP 134/71
[2020-10-28 05:00] VITALS: BP 128/73
[2020-10-28] MEDS: InsuLIN REG 1unit/0.01ml Soln (100units/ml) SC SCH ×4 (06:00→23:51)
[2020-10-28] MEDS: ACCU-CHEK COMFORT CURVE STRIP VI SCH ×4 (06:02→23:51)
[2020-10-28 09:00] VITALS: BP 127/69
[2020-10-28] MEDS: FLUCONAZOLE 200MG/100ML 100 ML IV SCH (09:23)
[2020-10-28] MEDS: ENOXAPARIN SOD 30 MG/0.3 ML SYRINGE SC SCH (09:23)
[2020-10-28] MEDS: levoFLOXacin 500 MG TAB PO SCH (09:23)
[2020-10-28] MEDS: PANTOPRAZOLE 40 MG TAB PO SCH (09:24)
[2020-10-28] MEDS: HYDROcodone-ACET 5/325MG TAB PO PRN ×2 (09:25→17:50)
[2020-10-28] MEDS: Glucerna Carbsteady SHAKE Vanilla 8oz PO SCH ×3 (12:00→19:25)
[2020-10-28 13:00] VITALS: BP 120/68
[2020-10-28 16:51] VITALS: BP 108/58
[2020-10-28 21:22] VITALS: BP 141/67
[2020-10-29 05:04] VITALS: BP 150/73
[2020-10-29] MEDS: HYDROcodone-ACET 5/325MG TAB PO PRN ×3 (05:06→23:31)
[2020-10-29] MEDS: ACCU-CHEK COMFORT CURVE STRIP VI SCH ×4 (05:27→23:30)
[2020-10-29] MEDS: InsuLIN REG 1unit/0.01ml Soln (100units/ml) SC SCH ×4 (05:28→23:30)
[2020-10-29 09:00] VITALS: BP 115/63
[2020-10-29] MEDS: ACETAMINOPHEN 325 MG TAB PO PRN (09:49)
[2020-10-29] MEDS: levoFLOXacin 500 MG TAB PO SCH (09:49)
[2020-10-29] MEDS: PANTOPRAZOLE 40 MG TAB PO SCH (09:49)
[2020-10-29] MEDS: FLUCONAZOLE 200MG/100ML 100 ML IV SCH (09:50)
[2020-10-29] MEDS: ENOXAPARIN SOD 30 MG/0.3 ML SYRINGE SC SCH (09:50)
[2020-10-29] MEDS: Glucerna Carbsteady SHAKE Vanilla 8oz PO SCH ×3 (09:51→17:45)
[2020-10-29 13:00] VITALS: BP 139/78
[2020-10-29 16:57] VITALS: BP 100/63
[2020-10-29 22:00] VITALS: BP 139/81
[2020-10-30 05:00] VITALS: BP 147/81
[2020-10-30] MEDS: InsuLIN REG 1unit/0.01ml Soln (100units/ml) SC SCH ×4 (05:53→23:43)
[2020-10-30] MEDS: ACCU-CHEK COMFORT CURVE STRIP VI SCH ×4 (05:53→23:42)
[2020-10-30] MEDS: HYDROcodone-ACET 5/325MG TAB PO PRN ×2 (06:02→15:38)
[2020-10-30 06:57] LABS: BUN/Creatinine Ratio 13.6; Calcium 8.1 mg/dL (8.5-10.1); Magnesium 1.4 mg/dL (1.6-2.6)
[2020-10-30 07:00] LABS: Bilirubin, Total 0.3 mg/dL (0.2-1.0); Total Protein 5.5 g/dL (6.4-8.2)
[2020-10-30 07:02] LABS: Phosphorus 2.4 mg/dL (2.5-4.90)
[2020-10-30] MEDS: Glucerna Carbsteady SHAKE Vanilla 8oz PO SCH ×3 (08:39→17:27)
[2020-10-30 09:01] VITALS: BP 124/68
[2020-10-30] MEDS: ENOXAPARIN SOD 30 MG/0.3 ML SYRINGE SC SCH (09:30)
[2020-10-30] MEDS: FLUCONAZOLE 100 MG TAB PO SCH (09:30)
[2020-10-30] MEDS: ACETAMINOPHEN 325 MG TAB PO PRN (09:30)
[2020-10-30] MEDS: PANTOPRAZOLE 40 MG TAB PO SCH (09:30)
[2020-10-30] MEDS: levoFLOXacin 500 MG TAB PO SCH (09:30)
[2020-10-30 13:00] VITALS: BP 121/69
[2020-10-30] MEDS ORDERED: POTASSIUM EFFERVESENT TAB 25 MEQ PO ONE ×2 (13:00→14:15)
[2020-10-30 22:00] VITALS: BP 122/89
[2020-10-31] MEDS: HYDROcodone-ACET 5/325MG TAB PO PRN ×4 (00:58→21:34)
[2020-10-31 05:00] VITALS: BP 122/70
[2020-10-31] MEDS: ACCU-CHEK COMFORT CURVE STRIP VI SCH ×3 (05:59→17:37)
[2020-10-31] MEDS: InsuLIN REG 1unit/0.01ml Soln (100units/ml) SC SCH ×3 (05:59→17:43)
[2020-10-31 06:34] LABS: Albumin 2.1 g/dL (3.4-5.0); Calcium 8.1 mg/dL (8.5-10.1); Potassium 3.4 mmol/L (3.5-5.1)
[2020-10-31 06:37] LABS: BUN/Creatinine Ratio 13.6; Bilirubin, Total 0.3 mg/dL (0.2-1.0); Total Protein 5.8 g/dL (6.4-8.2)
[2020-10-31] MEDS: Glucerna Carbsteady SHAKE Vanilla 8oz PO SCH ×3 (08:00→17:37)
[2020-10-31 09:00] VITALS: BP 122/70
[2020-10-31] MEDS: ENOXAPARIN SOD 30 MG/0.3 ML SYRINGE SC SCH (09:01)
[2020-10-31] MEDS: FLUCONAZOLE 100 MG TAB PO SCH (09:01)
[2020-10-31] MEDS: PANTOPRAZOLE 40 MG TAB PO SCH (09:02)
[2020-10-31] MEDS: levoFLOXacin 500 MG TAB PO SCH (09:02)
[2020-10-31] MEDS ORDERED: DIGOXIN 0.125 MG TAB PO ONE (11:45)
[2020-10-31 12:41] VITALS: BP 127/70
[2020-10-31 16:44] VITALS: BP 127/72
[2020-10-31 22:00] VITALS: BP 125/68
[2020-11-01] MEDS ORDERED: diphenhdrAMINE HCL 25 MG CAP PO ONE (00:15)
[2020-11-01] MEDS: HYDROcodone-ACET 5/325MG TAB PO PRN ×4 (04:22→20:39)
[2020-11-01 05:00] VITALS: BP 125/67
[2020-11-01] MEDS: InsuLIN REG 1unit/0.01ml Soln (100units/ml) SC SCH ×5 (06:00→23:38)
[2020-11-01] MEDS: ACCU-CHEK COMFORT CURVE STRIP VI SCH ×5 (06:22→23:32)
[2020-11-01 06:50] LABS: Albumin 1.9 g/dL (3.4-5.0); Calcium 7.8 mg/dL (8.5-10.1); Potassium 3.3 mmol/L (3.5-5.1)
[2020-11-01 06:55] LABS: BUN/Creatinine Ratio 15.2; Bilirubin, Total 0.3 mg/dL (0.2-1.0); Total Protein 5.3 g/dL (6.4-8.2)
[2020-11-01 09:00] VITALS: BP 129/71
[2020-11-01] MEDS: POTASSIUM EFFERVESENT TAB 25 MEQ PO SCH (09:30)
[2020-11-01] MEDS: FLUCONAZOLE 100 MG TAB PO SCH (09:30)
[2020-11-01] MEDS: Glucerna Carbsteady SHAKE Vanilla 8oz PO SCH ×2 (09:30→11:35)
[2020-11-01] MEDS: PANTOPRAZOLE 40 MG TAB PO SCH (09:31)
[2020-11-01] MEDS: ENOXAPARIN SOD 30 MG/0.3 ML SYRINGE SC SCH (09:31)
[2020-11-01] MEDS: DIGOXIN 0.125 MG TAB PO SCH (09:31)
[2020-11-01] MEDS: levoFLOXacin 500 MG TAB PO SCH (09:31)
[2020-11-01] MEDS ORDERED: POTASSIUM EFFERVESENT TAB 25 MEQ PO ONE (12:00)
[2020-11-01 13:00] VITALS: BP 124/67
[2020-11-01] MEDS: Ensure Enlive Strawberry 8oz Bottle PO SCH (17:45)
[2020-11-01 22:00] VITALS: BP 91/46
[2020-11-02] MEDS: HYDROcodone-ACET 5/325MG TAB PO PRN ×4 (04:56→23:59)
[2020-11-02 05:00] VITALS: BP 98/55
[2020-11-02] MEDS: InsuLIN REG 1unit/0.01ml Soln (100units/ml) SC SCH ×4 (06:00→23:52)
[2020-11-02] MEDS: ACCU-CHEK COMFORT CURVE STRIP VI SCH ×4 (06:08→23:51)
[2020-11-02] MEDS: Ensure Enlive Strawberry 8oz Bottle PO SCH ×2 (08:00→18:16)
[2020-11-02] MEDS: DIGOXIN 0.125 MG TAB PO SCH (09:58)
[2020-11-02] MEDS: PANTOPRAZOLE 40 MG TAB PO SCH (09:58)
[2020-11-02] MEDS: FLUCONAZOLE 100 MG TAB PO SCH (09:58)
[2020-11-02] MEDS: levoFLOXacin 500 MG TAB PO SCH (09:59)
[2020-11-02] MEDS: POTASSIUM EFFERVESENT TAB 25 MEQ PO SCH (10:19)
[2020-11-02] MEDS: ENOXAPARIN SOD 30 MG/0.3 ML SYRINGE SC SCH (10:20)
[2020-11-02 13:00] VITALS: BP 100/56
[2020-11-02 17:00] VITALS: BP 105/55
[2020-11-02] MEDS: ACETAMINOPHEN 325 MG TAB PO PRN (18:24)
[2020-11-02] MEDS: ALUM & MAG HYDROX-SIMETH LIQ(MAALOX) 30 ML PO PRN (19:50)
[2020-11-02 22:00] VITALS: BP 110/58
[2020-11-03] MEDS: HYDROcodone-ACET 5/325MG TAB PO PRN ×3 (04:03→23:39)
[2020-11-03 05:00] VITALS: BP 73/38
[2020-11-03 05:34] VITALS: BP 88/43
[2020-11-03 05:51] LABS: Basophils # (auto) 0.1 10 ^3/uL (0-0.2); Basophils % (auto) 0.5 % (0.0-2.0); Eosinophils # (auto) 0.1 10 ^3/uL (0-0.8); Eosinophils % (auto) 0.6 % (0.0-7.0); Hematocrit 27.2 % (41.0-53.0); Hemoglobin 9.3 g/dL (13.5-17.5); Lymphocytes # (auto) 1.5 10 ^3/uL (0.4-5.4); Lymphocytes % (auto) 12.3 % (10.0-50.0); Mean Corpuscular Hemoglobin 31.1 pg (28.0-32.0); Mean Corpuscular Hgb Conc. 34.1 g/dL (32.0-36.0); Mean Corpuscular Volume 91.2 fL (80.0-100.0); Monocytes # (auto) 0.8 10 ^3/uL (0-1.3); Monocytes % (auto) 6.5 % (0.0-12.0); Neutrophils # (auto) 9.6 10 ^3/uL (1.6-8.6); Neutrophils % (auto) 80.1 % (37.0-80.0); Red Blood Cells 2.99 10^6/uL (4.5-5.90)
[2020-11-03 06:00] VITALS: BP 92/53
[2020-11-03] MEDS: InsuLIN REG 1unit/0.01ml Soln (100units/ml) SC SCH ×4 (06:00→23:39)
[2020-11-03] MEDS: ACCU-CHEK COMFORT CURVE STRIP VI SCH ×4 (06:14→23:39)
[2020-11-03 06:15] LABS: Potassium 4.2 mmol/L (3.5-5.1)
[2020-11-03 06:24] LABS: BUN/Creatinine Ratio 18.3; Calcium 7.9 mg/dL (8.5-10.1)
[2020-11-03 09:39] VITALS: BP 108/40
[2020-11-03] MEDS: POTASSIUM EFFERVESENT TAB 25 MEQ PO SCH (10:00)
[2020-11-03] MEDS: FLUCONAZOLE 100 MG TAB PO SCH (10:11)
[2020-11-03] MEDS: DIGOXIN 0.125 MG TAB PO SCH (10:11)
[2020-11-03] MEDS: Ensure Enlive Strawberry 8oz Bottle PO SCH ×2 (10:11→18:49)
[2020-11-03] MEDS: levoFLOXacin 500 MG TAB PO SCH (10:11)
[2020-11-03] MEDS: PANTOPRAZOLE 40 MG TAB PO SCH (10:12)
[2020-11-03] MEDS: ENOXAPARIN SOD 30 MG/0.3 ML SYRINGE SC SCH (10:12)
[2020-11-03] MEDS: traMADol HCL 50 MG TAB PO PRN ×2 (12:31→19:55)
[2020-11-03 13:16] VITALS: BP 122/54
[2020-11-03 17:00] VITALS: BP 114/67
[2020-11-04] MEDS: HYDROcodone-ACET 5/325MG TAB PO PRN ×4 (04:24→22:04)
[2020-11-04 05:00] VITALS: BP 123/66
[2020-11-04] MEDS: InsuLIN REG 1unit/0.01ml Soln (100units/ml) SC SCH ×4 (06:00→23:51)
[2020-11-04] MEDS: ACCU-CHEK COMFORT CURVE STRIP VI SCH ×4 (06:06→23:50)
[2020-11-04 09:00] VITALS: BP 108/65
[2020-11-04] MEDS: POTASSIUM EFFERVESENT TAB 25 MEQ PO SCH (10:20)
[2020-11-04] MEDS: Ensure Enlive Strawberry 8oz Bottle PO SCH ×2 (10:20→17:46)
[2020-11-04] MEDS: FLUCONAZOLE 100 MG TAB PO SCH (10:20)
[2020-11-04] MEDS: levoFLOXacin 500 MG TAB PO SCH (10:21)
[2020-11-04] MEDS: DIGOXIN 0.125 MG TAB PO SCH (10:21)
[2020-11-04] MEDS: PANTOPRAZOLE 40 MG TAB PO SCH (10:22)
[2020-11-04] MEDS: ENOXAPARIN SOD 30 MG/0.3 ML SYRINGE SC SCH (10:22)
[2020-11-04 17:00] VITALS: BP 106/62
[2020-11-04 22:00] VITALS: BP 127/70
[2020-11-05] MEDS: HYDROcodone-ACET 5/325MG TAB PO PRN ×5 (04:34→22:38)
[2020-11-05 05:00] VITALS: BP 111/59
[2020-11-05] MEDS: ACCU-CHEK COMFORT CURVE STRIP VI SCH ×3 (05:36→18:00)
[2020-11-05] MEDS: InsuLIN REG 1unit/0.01ml Soln (100units/ml) SC SCH ×3 (05:37→18:00)
[2020-11-05] MEDS: ALUM & MAG HYDROX-SIMETH LIQ(MAALOX) 30 ML PO PRN (08:44)
[2020-11-05] MEDS: FLUCONAZOLE 100 MG TAB PO SCH (08:46)
[2020-11-05] MEDS: levoFLOXacin 500 MG TAB PO SCH (08:46)
[2020-11-05] MEDS: PANTOPRAZOLE 40 MG TAB PO SCH (08:46)
[2020-11-05] MEDS: DIGOXIN 0.125 MG TAB PO SCH (08:47)
[2020-11-05] MEDS: POTASSIUM EFFERVESENT TAB 25 MEQ PO SCH (08:48)
[2020-11-05] MEDS: ENOXAPARIN SOD 30 MG/0.3 ML SYRINGE SC SCH (08:48)
[2020-11-05] MEDS: Ensure Enlive Strawberry 8oz Bottle PO SCH ×2 (08:49→18:00)
[2020-11-05 09:00] VITALS: BP 101/59
[2020-11-05 12:23] VITALS: BP 101/61
[2020-11-05 13:00] VITALS: BP 103/54
[2020-11-05 17:00] VITALS: BP 111/59
[2020-11-05 22:00] VITALS: BP 116/55
[2020-11-06] MEDS: ACCU-CHEK COMFORT CURVE STRIP VI SCH ×5 (01:48→23:46)
[2020-11-06 05:00] VITALS: BP 123/68
[2020-11-06] MEDS: InsuLIN REG 1unit/0.01ml Soln (100units/ml) SC SCH ×5 (05:31→23:47)
[2020-11-06] MEDS: Ensure Enlive Strawberry 8oz Bottle PO SCH ×2 (08:00→18:00)
[2020-11-06 09:00] VITALS: BP 101/66
[2020-11-06] MEDS: FLUCONAZOLE 100 MG TAB PO SCH (09:04)
[2020-11-06] MEDS: POTASSIUM EFFERVESENT TAB 25 MEQ PO SCH (09:04)
[2020-11-06] MEDS: PANTOPRAZOLE 40 MG TAB PO SCH (09:05)
[2020-11-06] MEDS: levoFLOXacin 500 MG TAB PO SCH (09:05)
[2020-11-06] MEDS: ENOXAPARIN SOD 30 MG/0.3 ML SYRINGE SC SCH (09:06)
[2020-11-06] MEDS: ALUM & MAG HYDROX-SIMETH LIQ(MAALOX) 30 ML PO PRN (09:10)
[2020-11-06] MEDS: HYDROcodone-ACET 5/325MG TAB PO PRN ×4 (09:11→21:50)
[2020-11-06] MEDS: DIGOXIN 0.125 MG TAB PO SCH (09:13)
[2020-11-06 12:52] VITALS: BP 114/63
[2020-11-06] MEDS: traMADol HCL 50 MG TAB PO PRN (15:12)
[2020-11-06 16:37] VITALS: BP 95/56
[2020-11-06 22:00] VITALS: BP 114/61
[2020-11-07] MEDS: HYDROcodone-ACET 5/325MG TAB PO PRN ×5 (03:28→22:22)
[2020-11-07 05:27] VITALS: BP 107/56
[2020-11-07] MEDS: InsuLIN REG 1unit/0.01ml Soln (100units/ml) SC SCH ×3 (05:32→18:00)
[2020-11-07] MEDS: ACCU-CHEK COMFORT CURVE STRIP VI SCH ×3 (05:32→18:18)
[2020-11-07] MEDS: Ensure Enlive Strawberry 8oz Bottle PO SCH ×2 (08:00→18:18)
[2020-11-07 09:00] VITALS: BP 96/49
[2020-11-07] MEDS: FLUCONAZOLE 100 MG TAB PO SCH (11:30)
[2020-11-07] MEDS: DIGOXIN 0.125 MG TAB PO SCH (11:31)
[2020-11-07] MEDS: PANTOPRAZOLE 40 MG TAB PO SCH (11:32)
[2020-11-07] MEDS: levoFLOXacin 500 MG TAB PO SCH (11:32)
[2020-11-07] MEDS: ENOXAPARIN SOD 30 MG/0.3 ML SYRINGE SC SCH (11:33)
[2020-11-07] MEDS: POTASSIUM EFFERVESENT TAB 25 MEQ PO SCH (11:34)
[2020-11-07 13:00] VITALS: BP 118/51
[2020-11-07 17:00] VITALS: BP 116/64
[2020-11-07 22:15] VITALS: BP 100/62
[2020-11-08] MEDS: ACCU-CHEK COMFORT CURVE STRIP VI SCH ×4 (00:45→18:07)
[2020-11-08] MEDS: InsuLIN REG 1unit/0.01ml Soln (100units/ml) SC SCH ×4 (00:48→18:10)
[2020-11-08 05:00] VITALS: BP 105/59
[2020-11-08] MEDS: HYDROcodone-ACET 5/325MG TAB PO PRN ×4 (06:57→21:04)
[2020-11-08] MEDS: Ensure Enlive Strawberry 8oz Bottle PO SCH ×2 (08:00→18:13)
[2020-11-08 09:00] VITALS: BP 104/56
[2020-11-08] MEDS: POTASSIUM EFFERVESENT TAB 25 MEQ PO SCH (09:39)
[2020-11-08] MEDS: PANTOPRAZOLE 40 MG TAB PO SCH (09:39)
[2020-11-08] MEDS: levoFLOXacin 500 MG TAB PO SCH (09:39)
[2020-11-08] MEDS: FLUCONAZOLE 100 MG TAB PO SCH (09:39)
[2020-11-08] MEDS: DIGOXIN 0.125 MG TAB PO SCH (09:39)
[2020-11-08] MEDS: ENOXAPARIN SOD 30 MG/0.3 ML SYRINGE SC SCH (09:40)
[2020-11-08 13:00] VITALS: BP 107/57
[2020-11-08] MEDS ORDERED: SERTRALINE HCL 50 MG TAB PO ONE (14:45)
[2020-11-08 17:00] VITALS: BP 94/52
[2020-11-08 22:00] VITALS: BP 98/57
[2020-11-09] MEDS: HYDROcodone-ACET 5/325MG TAB PO PRN ×3 (03:00→14:42)
[2020-11-09 05:00] VITALS: BP 115/58
[2020-11-09] MEDS: ACCU-CHEK COMFORT CURVE STRIP VI SCH ×4 (05:54→18:52)
[2020-11-09] MEDS: InsuLIN REG 1unit/0.01ml Soln (100units/ml) SC SCH ×4 (05:55→18:00)
[2020-11-09] MEDS: Ensure Enlive Strawberry 8oz Bottle PO SCH ×2 (08:00→18:00)
[2020-11-09 09:00] VITALS: BP 102/53
[2020-11-09] MEDS: PANTOPRAZOLE 40 MG TAB PO SCH (09:48)
[2020-11-09] MEDS: DIGOXIN 0.125 MG TAB PO SCH (09:49)
[2020-11-09] MEDS: FLUCONAZOLE 100 MG TAB PO SCH (09:49)
[2020-11-09] MEDS: ENOXAPARIN SOD 30 MG/0.3 ML SYRINGE SC SCH (09:50)
[2020-11-09] MEDS ORDERED: SERTRALINE HCL 50 MG TAB PO SCH (10:00)
[2020-11-09 13:00] VITALS: BP 107/58
[2020-11-09 17:00] VITALS: BP 123/65
== END 2020-11-09 18:45 | disposition hospice, home (50) | DRG 870 ==
LOC: ER 11:18 → EDBD 11:18 → TELE 14:12 → UNDOADMIN 14:12 → ICU WEST 15:30 → EDUNIT# 15:30 → ICU WEST 20:15 → TELE-WESTW 10-19 22:23 → WEST WING 11-01 11:30
PROVIDERS: ADMIT Hospitalist; ATTEND Internal Medicine
PROC: 5A1955Z Respiratory Ventilation, Greater than 96 Consecutive Hours (ICD-10-PCS; principal; 2020-10-05)
PROC: 0BH17EZ Insertion of Endotracheal Airway into Trachea, Via Natural or Artificial Opening (ICD-10-PCS; 2020-10-05)
PROC: 02HV33Z Insertion of Infusion Device into Superior Vena Cava, Percutaneous Approach (ICD-10-PCS; 2020-10-05)
PROC: 0BP1XDZ Removal of Intraluminal Device from Trachea, External Approach (ICD-10-PCS; 2020-10-13)
PROC: 0BH17EZ Insertion of Endotracheal Airway into Trachea, Via Natural or Artificial Opening (ICD-10-PCS; 2020-10-13)
PROC: 30233N1 Transfusion of Nonautologous Red Blood Cells into Peripheral Vein, Percutaneous Approach (ICD-10-PCS; 2020-10-15)
PROC: 5A09357 Assistance with Respiratory Ventilation, Less than 24 Consecutive Hours, Continuous Positive Airway Pressure (ICD-10-PCS; 2020-10-15)
PROC: 05HB33Z Insertion of Infusion Device into Right Basilic Vein, Percutaneous Approach (ICD-10-PCS; 2020-10-22)
DX: A41.9 Sepsis, unspecified organism (principal); E11.10 Type 2 diabetes mellitus with ketoacidosis without coma; R65.21 Severe sepsis with septic shock; J96.01 Acute respiratory failure with hypoxia; J69.0 Pneumonitis due to inhalation of food and vomit; N17.0 Acute kidney failure with tubular necrosis; I21.4 Non-ST elevation (NSTEMI) myocardial infarction; E43 Unspecified severe protein-calorie malnutrition; G92 Toxic encephalopathy; M62.82 Rhabdomyolysis; N18.5 Chronic kidney disease, stage 5; E87.0 Hyperosmolality and hypernatremia; E87.1 Hypo-osmolality and hyponatremia; I13.2 Hypertensive heart and chronic kidney disease with heart failure and with stage 5 chronic kidney disease, or end stage renal disease; Z68.1 Body mass index [BMI] 19.9 or less, adult; Z51.5 Encounter for palliative care; Z20.822 Contact with and (suspected) exposure to COVID-19; I50.9 Heart failure, unspecified; D63.8 Anemia in other chronic diseases classified elsewhere; E83.42 Hypomagnesemia; E11.42 Type 2 diabetes mellitus with diabetic polyneuropathy; E11.22 Type 2 diabetes mellitus with diabetic chronic kidney disease; E78.5 Hyperlipidemia, unspecified; D69.6 Thrombocytopenia, unspecified; E87.5 Hyperkalemia; F31.9 Bipolar disorder, unspecified; K59.04 Chronic idiopathic constipation; K31.9 Disease of stomach and duodenum, unspecified; D64.9 Anemia, unspecified; E87.6 Hypokalemia; E83.51 Hypocalcemia; E87.8 Other disorders of electrolyte and fluid balance, not elsewhere classified; Z79.899 Other long term (current) drug therapy
CPT/HCPCS: 31500; 36415; 36556; 36600; 51702; 70450; 71045; 71250; 74176; 80048; 80053; 80061; 80076; 80202; 81001; 82010; 82270; 82306; 82330; 82533; 82550; 82553; 82570; 82784; 82805; 82962; 83036; 83520; 83540; 83550; 83605; 83735; 83880; 83970; 84100; 84132; 84156; 84300; 84443; 84484; 84550; 85007; 85014; 85018; 85025; 85027; 85379; 85610; 85730; 86160; 86256; 86334; 86850; 86900; 86901; 86920; 87040; 87070; 87077; 87081; 87086; 87186; 87205; 87426; 92610; 93005; 93306; 93970; 94002; 94003; 94644; 96361; 96365; 96367; 96372; 96375; 97110; 97116; 97163; 97530; 99291; A4618; C9113; G0378; J0153; J0330; J0696; J1450; J1815; J1956; J2185; J2250; J2405; J2543; J3480; J3490; J7042; J7060